=== PATIENT | female | born 1960 | race Caucasian/White ===

== ENCOUNTER 2020-03-27 12:03 | Inpatient (IN) | payer MEDICAID, SELFPAY ==
[2020-03-27] VITALS (17 sets, daily range): BP systolic 90–147; BP diastolic 42–92; PULSE 60–88; RESP 10–25; O2SAT 92–100; BMI 33.6
--- NOTE | 2020-03-27 12:10 | XR_ITS ---
WS: [id number] Portable AP upright chest, 03/27/2020 Clinical Data: cva Comparison: PA and lateral chest, 09/15/2014. Findings: There is patchy opacity in the right lower lobe which may represent acute pneumonia. The le ft lung is clear. The heart is normal. The aortic arch is tortuous. Monitor leads are on the chest wa ll. XR/XR chest 1V portable [id number] Impression: Patchy opacity in right lower lobe consistent with acute pneumonia.
--- NOTE | 2020-03-27 12:10 | CT_ITS ---
WS: [id number] CT HEAD TECHNIQUE: Noncontrast CT of the head obtained from the skullbase to the vertex. CLINICAL INFORMATION: cva COMPARISON: None. DLP: 1060.[address] scans at [facility] use at least one of these dose optimization techniques: automat ed exposure control; mA and/or kV adjustment per patient size (includes targeted exams where dose is matched to clinical indication); or iterative reconstruction. FINDINGS: No evidence of intracranial hemorrhage or mass effect. Ventricular system and basal cisterns are tej[place] nt. Mild small vessel changes with no significant parenchymal volume loss. Prominent perivascular spa ce left basal ganglia. No extra-axial fluid collections. No evidence of mass or mass effect. Normal g ray-white differentiation. Small amount of fluid left maxillary sinus. Mastoid air cells well aerated. CT/CT head wo con* [id number] IMPRESSION: 1. No evidence of intracranial hemorrhage or mass effect. 2. No acute intracranial findings.
--- NOTE | 2020-03-27 12:11 | ECG_ITS ---
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 Measurements Intervals [place] Rate: 87 P: 20 WV: 132 QRS: 45 QRSD: 79 T: 28 QT: 330 QTc: 398 Interpretive Statements SINUS RHYTHM LOW QRS VOLTAGE IN PRECORDIAL LEADS [QRS DEFLECTION < 1.0 mV IN CHEST LEADS] NONSPECIFIC ST & T-WAVE ABNORMALITY No previous ECG available for comparison Electronically Signed On 03-27-2020 19:51:44 SENIOR TELECOMMUNICATIONS ENGINEER by Neil Cobb M.D. [id number]
--- NOTE | 2020-03-27 12:21 | ED_ITS ---
HPI - Altered Mental Status General: Chief Complaint: Altered Mental Status Stated Complaint: stroke like symptoms Time Seen by Provider: 03/27/20 12:15 Source: patient Mode of arrival: ambulatory Limitations: no limitations History of Present Illness: HPI narrative: 59-year-old female states she been having cough and shortness of breath over the last week. She states she does have a history of COPD. States she is having some confusion today. She is able answer most questions correctly she did tell me it was 2020. Denies any fevers. Patient is in obvious distress here and was 78% pulse ox. She denies any chest pain. Associated symptoms: Deny depression Review of Systems Const: Denies: fever(s), chills, body aches or change in appetite Eyes: Denies: blurry vision or eye discomfort ENMT: Denies: throat pain or dental pain Card: Denies: chest pain Resp: Reports: dyspnea, non-productive cough and wheezing GI: Denies: abdominal pain, nausea, vomiting or diarrhea : Denies: dysuria Musc: Denies: neck pain or back pain Skin/Breast: Denies: rash Neuro: Denies: headache(s) Psych: Denies: depression Jameson/Lymph: Denies: easy bruising All/Imm: Denies: urticaria Physical Exam Const: COMMON NORMALS: patient oriented x3 GENERAL APPEARANCE: in distress and ill appearing HENMT: COMMON NORMALS: normocephalic and atraumatic HEAD & SCALP: normoc ephalic and atraumatic Eye: COMMON NORMALS: Equal, round and reactive pupils present and EOMs intact bilaterally PUPIL: Yes Equal, round and reactive pupils present Neck/C-Spine: COMMON NORMALS: full ROM and supple Chest: COMMONS NORMALS: normal inspection of the chest and normal palpation of entire chest wall Resp: COMMON NORMALS: No retractions and No use of accessory muscles EFFORT & INSPECTION: Yes respiratory distress AUSCULTATION: wheezes Cardio: COMMON NORMALS: regular rate, regular rhythm and No murmurs present (Cardio) RATE: regular rate RHYTHM: regular rhythm GI: COMMON NORMALS: Normal to inspection, nondistended, normoactive bowel sounds present, Soft to palpation, non-tender and no masses PALPATION: Yes Soft to palpation Extremity: COMMON NORMALS: normal to inspection and full ROM Neuro: COMMON NORMALS: patient oriented x3, moves all extremities and no focal motor deficits Psych: COMMON NORMALS: mental status grossly normal, Normal thought process present and cooperative THOUGHT PROCESS: Normal thought process present Skin: COMMON NORMALS: no rashes or lesions noted and no wounds GENERAL SKIN EXAM: no rashes or lesions noted Course Vital Signs: Vital signs: Vital Signs Pulse Rate 79 03/27/20 13:40 Pulse Oximetry 92 03/27/20 13:40 MDM - Altered Mental Status MDM Narrative: Medical decision making narrative: Patient presents here with shortness of breath with a right-sided pneumonia. Her Covid test here is negative. Start patient on antibiotics along with BiPAP. Spoke to hospitalist and will admit. She has been stable while here. Lab Data: Labs: Lab Results 03/27/20 03/27/20 03/27/20 Range/Units 12:36 12:50 12:50 WBC 12.8 H (4.0-10.0) 10^3/ uL RBC 4.16 (4.1-5.3) 10^6/u L Hgb 11.6 (11.5-15.3) g/dL Hct 36.3 L (37.0-47.0) % MCV 87.3 (81-99) fL MCH 27.9 L (28.0-34.0) pg MCHC 32.0 (30.0-36.0) g/dL RDW 14.2 (12.1-15.1) % Plt Count 413 H (130-400) 10^3/c mm MPV 9.3 (7.4-10.4) fL Neut % (Auto) 81.9 % Lymph % (Auto) 11.8 % [place] % (Auto) 3.6 % Eos % (Auto) 1.9 % Baso % (Auto) 0.2 % Neut # (Auto) 10.51 H (1.8-7.7) 10^3/u L Lymph # (Auto) 1.5 (0.8-4.8) 10^3/u L [place] # (Auto) 0.5 (0.2-0.9) 10^3/u L Eos # (Auto) 0.3 (0.0-0.8) 10^3/u L Baso # (Auto) 0.0 (0.0-0.1) 10^3/u L Nucleated RBC % (a uto) 0 % Nucleated RBCs # 0.0 /100WBC PT 14.80 (12.1-14.9) SECO NDS INR 1.13 (0.8-1.2) Fibrinogen 761 H (174-498) mg/dL Specimen Type Arterial Sample Site Radial, left ABG pH 7.30 L (7.35-7.45) ABG pCO2 46.0 H (35-45) mmHg ABG pO2 67.1 L (80.0-100.0) mmH g ABG HCO3 22.7 (22-26) mmol/L ABG Base Excess -3.8 L (-2.0-2.0) mmol/ L Sterling Test Pos Hematocrit 36.2 L (37-47) % O2 Delivery Device Nc O2 Liters/Min 5.0 % Health Records Technology Teacher ID Cak Sodium (136-145) mmol/L Potassium (3.5-5.1) mmol/L Chloride (98-107) mmol/L Carbon Dioxide (22-29) mmol/L Anion Gap (5-19) BUN (6-20) mg/dL Creatinine (0.5-0.9) mg/dL GFR Calculation (90-130) mL/min Glucose (65-115) mg/dL Calculated Osmolal ity (285-295) mOsm/k g Calcium (8.5-10.5) mg/dL Total Bilirubin (0.15-1.2) mg/dL AST (0-32) U/L ALT (0-33) U/L Alkaline Phosphata se (35-105) IU/L C-Reactive Protein (0.0-4.9) mg/L Total Protein (6.6-8.7) g/dL Albumin (3.5-5.2) g/dL Globulin (1.3-4.6) g/dL SARS-CoV-2 Ag (Rap id) (Negative) 03/27/20 03/27/20 Range/Units 12:50 12:55 WBC (4.0-10.0) 10^3/ uL RBC (4.1-5.3) 10^6/u L Hgb (11.5-15.3) g/dL Hct (37.0-47.0) % MCV (81-99) fL MCH (28.0-34.0) pg MCHC (30.0-36.0) g/dL RDW (12.1-15.1) % Plt Count (130-400) 10^3/c mm MPV (7.4-10.4) fL Neut % (Auto) % Lymph % (Auto) % [place] % (Auto) % Eos % (Auto) % Baso % (Auto) % Neut # (Auto) (1.8-7.7) 10^3/u L Lymph # (Auto) (0.8-4.8) 10^3/u L [place] # (Auto) (0.2-0.9) 10^3/u L Eos # (Auto) (0.0-0.8) 10^3/u L Baso # (Auto) (0.0-0.1) 10^3/u L Nucleated RBC % (a uto) % Nucleated RBCs # /100WBC PT (12.1-14.9) SECO NDS INR (0.8-1.2) Fibrinogen (174-498) mg/dL Specimen Type Sample Site ABG pH (7.35-7.45) ABG pCO2 (35-45) mmHg ABG pO2 (80.0-100.0) mmH g ABG HCO3 (22-26) mmol/L ABG Base Excess (-2.0-2.0) mmol/ L Sterling Test Hematocrit (37-47) % O2 Delivery Device O2 Liters/Min % Health Records Technology Teacher ID Sodium 137 (136-145) mmol/L Potassium 3.7 (3.5-5.1) mmol/L Chloride 100 (98-107) mmol/L Carbon Dioxide 22 (22-29) mmol/L Anion Gap 18.7 (5-19) BUN 28 H (6-20) mg/dL Creatinine 0.9 (0.5-0.9) mg/dL GFR Calculation 64.3 L (90-130) mL/min Glucose 98 (65-115) mg/dL Calculated Osmolal ity 289 (285-295) mOsm/k g Calcium 9.4 (8.5-10.5) mg/dL Total Bilirubin 0.3 (0.15-1.2) mg/dL AST 280 H (0-32) U/L ALT 100 H (0-33) U/L Alkaline Phosphata se 120 H (35-105) IU/L C-Reactive Protein 264.2 H (0.0-4.9) mg/L Total Protein 7.3 (6.6-8.7) g/dL Albumin 4.1 (3.5-5.2) g/dL Globulin 3.2 (1.3-4.6) g/dL SARS-CoV-2 Ag (Rap id) Negative (Negative) Imaging Data^: CXR: Attestation: I personally reviewed and interpreted this imaging study as follows: My impression: rll pneumonia Xray Ortho: Radiologist's impression: [place] [address] CT Scan Report Signed Patient: Selene Kern Unit #: [id number] : 1960 Age/Sex: 59 / F ADM Date: 03/27/20 Loc: ER Room/Bed: Attending Dr: Ordering Provider/Ordering MD: Hieu Castillo MD Date of Service: 03/27/20 Procedure(s): CT head wo con* [id number] Accession Number(s): [id number] Report Number: [id number] WS: [id number] CT HEAD TECHNIQUE: Noncontrast CT of the head obtained from the skullbase to the vertex. CLINICAL INFORMATION: cva COMPARISON: None. DLP: 1060.[address] scans at [facility] use at least one of these dose optimization techniques: automated exposure control; mA and/or kV adjustment per patient size (includes targeted exams where dose is matched to clinical indication); or iterative reconstruction. FINDINGS: No evidence of intracranial hemorrhage or mass effect. Ventricular system and basal cisterns are patent. Mild small vessel changes with no significant parenchymal volume loss. Prominent perivascular space left basal ganglia. No extra-axial fluid collections. No evidence of mass or mass effect. Normal lancaster-white differentiation. Small amount of fluid left maxillary sinus. Mastoid air cells well aerated. CT/CT head wo con* [id number] IMPRESSION: 1. No evidence of intracranial hemorrhage or mass effect. 2. No acute intracranial findings. CT Head: Radiologist's impression: [facility] [address] [place] [address] CT Scan Report Signed Patient: Selene Kern Unit #: [id number] : 1960 Age/Sex: 59 / F ADM Date: 03/27/20 Loc: ER Room/Bed: Attending Dr: Ordering Provider/Ordering MD: Hieu Castillo MD Date of Service: 03/27/20 Procedure(s): CT head wo con* [id number] Accession Number(s): [id number] Report Number: [id number] WS: [id number] CT HEAD TECHNIQUE: Noncontrast CT of the head obtained from the skullbase to the vertex. CLINICAL INFORMATION: cva COMPARISON: None. DLP: 1060.[address] scans at [facility] use at least one of these dose optimization techniques: automated exposure control; mA and/or kV adjustment per patient size (includes targeted exams where dose is matched to clinical indication); or iterative reconstruction. FINDINGS: No evidence of intracranial hemorrhage or mass effect. Ventricular system and basal cisterns are patent. Mild small vessel changes with no significant parenchymal volume loss. Prominent perivascular space left basal ganglia. No extra-axial fluid collections. No evidence of mass or mass effect. Normal lancaster-white differentiation. Small amount of fluid left maxillary sinus. Mastoid air cells well aerated. CT/CT head wo con* [id number] IMPRESSION: 1. No evidence of intracranial hemorrhage or mass effect. 2. No acute intracranial findings. 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
[2020-03-27 12:47] LABS: Arterial Blood Gas Hematocrit 36.2 % (37-47); Base Excess ABG -3.8 mmol/L (-2.0-2.0); Blood Gas Allen Test Pos; Blood Gas Operator Identificat CAK; Blood Gas Sample Site Radial, left; Blood Gas Sample Type Arterial; HCO3 ABG 22.7 mmol/L (22-26); Oxygen Device NC; PO2 ABG 67.1 mmHg (80.0-100.0)
[2020-03-27 13:14] LABS: Basophils % 0.2 %; Eosinophils # 0.3 10^3/uL (0.0-0.8); Eosinophils % 1.9 %; Hematocrit 36.3 % (37.0-47.0); Hemoglobin 11.6 g/dL (11.5-15.3); Lymphocytes # 1.5 10^3/uL (0.8-4.8); Lymphocytes % 11.8 %; Mean Corpuscular Hemoglobin 27.9 pg (28.0-34.0); Mean Corpuscular Volume 87.3 fL (81-99); Mean Platelet Volume 9.3 fL (7.4-10.4); Monocytes # 0.5 10^3/uL (0.2-0.9); Monocytes % 3.6 %; Neutrophils # 10.51 10^3/uL (1.8-7.7); Neutrophils % 81.9 %; Nucleated Red Blood Cells % 0 %; Platelet Count 413 10^3/cmm (130-400); Red Blood Count 4.16 10^6/uL (4.1-5.3); Red Cell Distribution Width 14.2 % (12.1-15.1); White Blood Count 12.8 10^3/uL (4.0-10.0)
[2020-03-27 13:27] LABS: Fibrinogen 761 mg/dL (174-498); INR 1.13 (0.8-1.2)
[2020-03-27 13:35] LABS: SARS Covid-2 Antigen Negative (Negative)
[2020-03-27 13:37] LABS: Alanine Aminotransferase 100 U/L (0-33); Albumin Level 4.1 g/dL (3.5-5.2); Alkaline Phosphatase 120 IU/L (35-105); Anion Gap 18.7 (5-19); Aspartate Amino Transferase 280 U/L (0-32); Blood Urea Nitrogen 28 mg/dL (6-20); C Reactive Protein 264.2 mg/L (0.0-4.9); Calcium 9.4 mg/dL (8.5-10.5); Carbon Dioxide 22 mmol/L (22-29); Chloride 100 mmol/L (98-107); Globulin 3.2 g/dL (1.3-4.6); Glomerular Filtration Rate 64.3 mL/min (90-130); Glucose 98 mg/dL (65-115); Osmolality Calculated 289 mOsm/kg (285-295); Potassium 3.7 mmol/L (3.5-5.1); Sodium 137 mmol/L (136-145); Total Bilirubin 0.3 mg/dL (0.15-1.2); Total Protein 7.3 g/dL (6.6-8.7)
--- NOTE | 2020-03-27 14:27 | P.HP_ITS ---
Providers/Chief Complaint Admitting Physician: Nacho Hills MD Chief Complaint: stroke like symptoms History of Present Illness Selene Kern is a 59 year old female 59 Y O F with PMH of COPD not on home oxygen ,HTN came in with c/o worsening cough and shortness of breath for a week.She deny any fever,chest pain,PND,Orthopnea,headache,N.V.D, any sick contact.Upon arrival inthe ER. ABG was done: Ph: 7.30,PCO2:46,PO2:67 at FIO2: 36%. Xray chest : Patchy opacity in right lower lobe consistent with acute pneumonia. C.T Head without Contrast : No evidence of intracranial hemorrhage or mass effect. 2. No acute intracranial findings. EKG: SINUS RHYTHM. LOW QRS VOLTAGE IN PRECORDIAL LEADS [QRS DEFLECTION < 1.0 mV IN CHEST LEADS] . NONSPECIFIC ST & T-WAVE ABNORMALITY. WBC:12.8 H/H: 11.6/36 PLT: 413 AST: 280, ALT: 100, ALP: 120 SARS COV2 AG :Negative Review of Systems General: Reports: 10 or more systems reviewed and unremarkable except in HPI and below Const: Denies: fever(s), chills, body aches, change in appetite or diaphoresis Card: Denies: palpitations, edema, swelling of feet/ankles, orthopnea or leg pain with exertion GI: Denies: abdominal pain, nausea, vomiting, diarrhea or constipation : Denies: flank pain Musc: Denies: back pain, extremity pain or extremity swelling Neuro: Denies: headache(s), difficulty walking or confusion Medications/Allergies Home Medications Medication Instructions Recorded Confirmed Last Taken Type albuterol sulfate [ProAir HFA] 2 puff INHALATION Q4H PRN 03/27/20 03/27/20 Unk nown History alprazolam 1 mg PO BID PRN 03/27/20 03/27/20 03/27/20 History fluticasone propionate 2 spray INTRANASAL BID 03/27/20 03/27/20 Unknown History gemfibrozil 600 mg PO BID 03/27/20 03/27/20 Unknown History ibuprofen 600 - 800 mg PO PRN 03/27/20 03/27/20 Unknown History nifedipine 30 mg PO DAILY 03/27/20 03/27/20 03/27/20 History omeprazole 20 mg PO DAILY PRN 03/27/20 03/27/20 Unknown History tramadol 50 mg PO BID PRN 03/27/20 03/27/20 03/27/20 History Allergies Allergy/AdvReac Type Severity Reaction Status Date / Time baclofen Allergy ADR-Itching Verified 03/27/20 12:46 Vitals/I&O/Wt Last Vital Signs Pulse 79 03/27/20 13:40 Pulse Ox 92 03/27/20 13:40 Weight last 48 hrs Weight 83.461 kg Physical Exam Const: COMMON NORMALS: patient oriented x3 HENMT: COMMON NORMALS: normocephalic, atraumatic, hearing grossly normal bilaterally and external ears normal HEAD & SCALP: normocephalic and atraumatic EXTERNAL EAR: Yes external ears normal Eye: COMMON NORMALS: no scleral icterus GENERAL EYE: appearance normal, both eyes and all related structures Chest: COMMONS NORMALS: normal inspection of the chest and normal palpation of entire chest wall CHEST: Yes Symmetrical chest wall rise Resp: EFFORT & INSPECTION: Yes abnormal respiratory pattern and Yes tachypneic AUSCULTATION: wheezes and diminished lung sounds Cardio: COMMON NORMALS: regular rate, regular rhythm, S1 normal heart sound present, S2 normal heart sound present, No gallops present (Cardio), No murmurs present (Cardio), No rub (Cardio) and Peripheral pulses 2+ throughout RATE: regular rate RHYTHM: regular rhythm HEART SOUNDS: S1 normal heart sound present and S2 normal heart sound present PERIPHERAL PULSES: Peripheral pulses 2+ throughout GI: COMMON NORMALS: Normal to inspection, nondistended, normoactive bowel sounds present, Soft to palpation, non-tender, No hepatosplenomegaly present and no masses AUSCULTATION: Yes normoactive bowel sounds PALPATION: Yes Soft to palpation and Yes No hepatosplenomegaly present RECTAL EXAM: deferred Extremity: COMMON NORMALS: no clubbing, cyanosis or edema and no pedal edema Neuro: COMMON NORMALS: patient oriented x3 Data : 03/27/20 12:50 03/27/20 12:50 A&P Assessment and plan (1) Respiratory failure: AC Hypercapneic hypoxic R/F likely 2/2 to PNA R/O P.E ABG : Acute (uncompensated) primary respiratory acidosis, with metabolic acidosis, with normal anion gap Xray chest: Patchy opacity in right lower lobe consistent with acute pneumonia Came in with worsening SOB as well as cough going on for a week. Currently On BIPAP Repeat ABG in an hour. CTA:Pending Cef and Azithro Status: Acute (2) COPD exacerbation: COPD Exacerbation 2/2 to PNA DUO NEBS Solumedrol 60 mg i.v q6h daily Cef and Azithromycin Status: Acute (3) Pneumonia: Xray chest: Patchy opacity in right lower lobe consistent with acute pneumonia Came in with worsening SOB as well as cough going on for a week. ABG : Acute (uncompensated) primary respiratory acidosis, with metabolic acidosis, with normal anion gap Currently On BIPAP Repeat ABG in an hour. 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
--- NOTE | 2020-03-27 14:50 | CTR_ITS ---
PROCEDURE INFORMATION: Exam: CT Angiography Chest With Contrast Exam date and time: 03/27/2020 3:01 PM Age: 59 years old Clinical indication: Cough and shortness of breath; Patient HX: C/O cough and SOB x 1 week; Additional info: R/O p. E TECHNIQUE: Imaging protocol: Computed tomographic angiography of the chest with intravenous contrast. 3D rendering (Not supervised by radiologist): MIP and/or 3D reconstructed images were created by the technologist. Radiation optimization: All CT scans at this facility use at least one of these dose optimization techniques: automated exposure control; mA and/or kV adjustment per patient size (includes targeted exams where dose is matched to clinical indication); or iterative reconstruction. Contrast material: OMNI 350; Contrast volume: 66 ml; Contrast route: INTRAVENOUS (IV); COMPARISON: CR XR chest 1V portable [id number] 03/27/2020 12:39 PM RADIATION DOSE METRICS: Total DLP (mGy-cm): 545.03 FINDINGS: Limitations: Study is somewhat limited by patient respiratory motion. Pulmonary arteries: There is no evidence of filling defects within the pulmonary arterial circulation to suggest pulmonary embolism. Aorta: Unremarkable. No aortic aneurysm. No aortic dissection. Lungs: There is moderate centrilobular emphysema throughout both lungs. There is diffuse of the opacity and peripheral consolidation in the right middle lobe in keeping with pneumonia. There is also ground-glass and alveolar opacity in the upper lobes abutting the fissures and posteriorly at the lung bases more on the right than on the left also some peripheral consolidation the right lower lobe in keeping with pneumonia. Findings could also be due in part to superimposed interstitial edema. Differential considerations include COVID-19. Pleural space: Unremarkable. No pneumothorax. No pleural effusion. Heart: Unremarkable. No cardiomegaly. No pericardial effusion. Lymph nodes: Unremarkable. No enlarged lymph nodes. Bones/joints: Unremarkable. No acute fracture. Soft tissues: Unremarkable. CT/CT angio chest PE protcl [id number] IMPRESSION: 1. No evidence of pulmonary embolism. 2. Bilateral pneumonia. Imaging features can be seen with COVID-19 pneumonia, though are nonspecific and can occur with a variety of infectious and noninfectious processes. Comment:THIS REPORT CONTAINS FINDINGS THAT MAY BE CRITICAL TO PATIENT CARE. The findings were verbally communicated via telephone conference with Dr. Santos at 6:31 PM SOFA BACK UPHOLSTERER on 03/27/2020. The findings were acknowledged and understood. Radiation Dose CTDIVOL = (mGy): DLP = 545.03 (mGy-cm)
[2020-03-27] MEDS: cefTRIAXone 1,000 MG in sodium chloride 0.9% (plus) 50 ML 100 MG IV (14:54)
[2020-03-27] MEDS: ipratropium-albuterol 3 mL Neb INHALATION (15:02)
[2020-03-27 15:14] LABS: ABG PCO2 48.7 mmHg (35-45); Alveolar-Arterial Oxygen Gradi 28.9 mmHg (5-10); Arterial Blood Gas Hematocrit 36.4 % (37-47); Base Excess ABG -2.9 mmol/L (-2.0-2.0); Blood Gas Allen Test Pos; Blood Gas Operator Identificat CAK; Blood Gas Sample Site Radial, left; Blood Gas Sample Type Arterial; HCO3 ABG 23.9 mmol/L (22-26); HGB O2 Sat 90.2 % (95-100); Ionized Calcium Level - ABG 1.2 mmol/L (1.1-1.4); Methemoglobin 0.9 % (0.4-1.5); Oxygen Device BIPAP; Oxygen Saturation ABG 91.1; PO2 ABG 76.9 mmHg (80.0-100.0); Total Hemoglobin 11.9 g/dL (12-16)
[2020-03-27] MEDS: enoxaparin 100 mg/mL Syringe 80 MG SUBCUT (15:57)
--- NOTE | 2020-03-27 16:32 | PC.NURSE ---
Spoke with patient's and he has been updated on the fact admitting physician felt the patient needed higher level of care. informed it could be a very lengthy process to find facility able to accept patient.
[2020-03-27] MEDS: azithromycin 500 MG in sodium chloride 0.9% 250 ML 250 MG IV (16:59)
[2020-03-27] MEDS: sodium chloride 0.9% 1,000 ML 999 ML IV ×2 (17:02→22:30)
--- NOTE | 2020-03-27 17:14 | PC.RESP ---
Mark Stanton of Resp. rate.
[2020-03-27] MEDS: iohexol 350 mg/mL 100 mL Btl IV (17:38)
[2020-03-27] MEDS: LORazepam 2 mg/mL INJ 1 mL 0.5 MG IVP (19:03)
[2020-03-27 20:02] LABS: ABG PCO2 46.5 mmHg (35-45); ABG PH Result 7.29 (7.35-7.45); Base Excess ABG -4.2 mmol/L (-2.0-2.0); Blood Gas Allen Test Pos; Blood Gas Sample Site Brachial, right; Blood Gas Sample Type Arterial; HCO3 ABG 22.4 mmol/L (22-26); Oxygen Device BIPAP; PO2 ABG 81.7 mmHg (80.0-100.0)
[2020-03-27] MEDS: LORazepam 2 mg/mL INJ 1 mL 1 MG IVP ×2 (20:50→21:25)
--- NOTE | 2020-03-27 21:28 | XRR_ITS ---
PROCEDURE INFORMATION: Exam: XR Chest, 1 View Exam date and time: 03/27/2020 10:02 PM Age: 59 years old Clinical indication: Device placement; Ett placement (vent status); Patient HX: Post intubation, post og tube TECHNIQUE: Imaging protocol: XR of the chest Views: 1 view. COMPARISON: CR XR chest 1V portable [id number] 03/27/2020 12:39 PM FINDINGS: Tubes, catheters and devices: Endotracheal tube is in satisfactory position with its tip approximately 2 cm above the loretta. Nasogastric tube tip is in the stomach. Lungs: There is pulmonary infiltrate in the right lower lobe and middle lobe not significantly changed from previous. Pleural space: Unremarkable. No pleural effusion. No pneumothorax. Heart/Mediastinum: Unremarkable. No cardiomegaly. Bones/joints: Unremarkable. XR/XR chest 1V portable [id number] IMPRESSION: 1. No change in pneumonia. 2. Satisfactory position of NG tube and ET tube
[2020-03-27] MEDS: propofol 1,000 MG/100 ML INJ 5 MG IV (21:34)
[2020-03-27] MEDS: vecuronium 10 mg SDV IVP (21:52)
[2020-03-27 22:15] LABS: Glucose Point of Care 157 mg/dL (70-110)
--- NOTE | 2020-03-27 22:57 | PC.NURSE ---
Arrived to ICU via [facility] 2245, transferred to bed via lift sheet, Fentanyl at 100 mcg, Propofol at 5 mcg, Pupils reactive, no response to verbal or pain at this time, ET tube 26 @ Lip
--- NOTE | 2020-03-27 23:33 | PC.NURSE ---
upon shift change, pt mentation status changed from diminished to combative. Pt pulling all monitoring equipment, and IV. 18g IV x1 attempt in L forearm and 16g in R AC placed x1 attempt. orders obtained for reception interviewer for her safety and ativan IVP. pt becoming inreasingly combative, requiring assistance from multiple staff members to keep pt in bed. notified of pt's increased combativeness, decision made for RSI. Intubation successful. Ryder catheter placed. ICU notified of updated status
--- NOTE | 2020-03-27 23:46 | PC.NURSE ---
pt B/P dropping to 90/42 after fentanyl drip administration. orders obtained for fluid bolus
[2020-03-27 23:59] LABS: ABG PCO2 45.1 mmHg (35-45); Arterial Blood Gas Hematocrit 40.9 % (37-47); Base Excess ABG -4.6 mmol/L (-2.0-2.0); Blood Gas Sample Site Brachial, left; Blood Gas Sample Type Arterial; Oxygen Device VENT; PO2 ABG 81.8 mmHg (80.0-100.0)
[2020-03-28] VITALS (41 sets, daily range): BP systolic 87–151; BP diastolic 46–75; PULSE 60–103; RESP 13–23; TEMP 36.7–36.9; O2SAT 90–96
--- NOTE | 2020-03-28 02:38 | PC.NURSE ---
N.O. BP 91/46 MAP 61, Dr. Lee Approved Levo Drip Protocol
--- NOTE | 2020-03-28 02:41 | PC.NURSE ---
0100 Pt became restless, RR 30's, Trying to get hands towards ET tube, Propofol advanced to 30 mcg/min per order see JUL, BP 91/46, Propofol decreased to 25 mcg/min per order BP 97/48 at this time
[2020-03-28 03:51] LABS: Basophils % 0.1 %; Hematocrit 34.2 % (37.0-47.0); Hemoglobin 10.6 g/dL (11.5-15.3); Lymphocytes % 13.9 %; Mean Corpuscular Hemoglobin 27.3 pg (28.0-34.0); Mean Corpuscular Volume 88.1 fL (81-99); Mean Platelet Volume 9.4 fL (7.4-10.4); Monocytes # 0.2 10^3/uL (0.2-0.9); Monocytes % 3.4 %; Neutrophils # 5.77 10^3/uL (1.8-7.7); Neutrophils % 81.6 %; Nucleated Red Blood Cells % 0 %; Platelet Count 385 10^3/cmm (130-400); Red Blood Count 3.88 10^6/uL (4.1-5.3); Red Cell Distribution Width 14.1 % (12.1-15.1); White Blood Count 7.1 10^3/uL (4.0-10.0)
[2020-03-28 04:33] LABS: Alanine Aminotransferase 85 U/L (0-33); Albumin Level 3.6 g/dL (3.5-5.2); Alkaline Phosphatase 98 IU/L (35-105); Aspartate Amino Transferase 189 U/L (0-32); Blood Urea Nitrogen 24 mg/dL (6-20); Carbon Dioxide 23 mmol/L (22-29); Chloride 106 mmol/L (98-107); Glomerular Filtration Rate 102.7 mL/min (90-130); Glucose 128 mg/dL (65-115); Magnesium 2.5 mg/dL (1.7-2.3); NT Pro B Type Natriuretic Pept 1190 pg/mL (0-125); Osmolality Calculated 302 mOsm/kg (285-295); Phosphorus 3.4 mg/dL (2.5-4.5); Procalcitonin 0.91 ng/mL (0-0.5); Sodium 143 mmol/L (136-145); Total Bilirubin 0.3 mg/dL (0.15-1.2); Total Protein 6.6 g/dL (6.6-8.7)
[2020-03-28 04:34] LABS: ABG PCO2 48.9 mmHg (35-45); Arterial Blood Gas Hematocrit 34.8 % (37-47); Base Excess ABG -2.6 mmol/L (-2.0-2.0); Blood Gas Allen Test Pos; Blood Gas Sample Site Radial, left; Blood Gas Sample Type Arterial; HCO3 ABG 24.1 mmol/L (22-26); Oxygen Device VENT
--- NOTE | 2020-03-28 05:50 | PC.NURSE ---
Restless, disconnected ET tube from vent, Propofol increased per order
[2020-03-28] MEDS: propofol 1,000 MG/100 ML INJ 20 MG IV (05:52)
--- NOTE | 2020-03-28 06:38 | NUR.SHIFT ---
Required multiple increases in Propopfol rate to keep from self extubating, disconnected ET tube from vent 1x, required Levophed drip, responds to painful stimuli
[2020-03-28] MEDS: ipratropium-albuterol 3 mL Neb INHALATION ×3 (09:20→20:09)
[2020-03-28] MEDS: LORazepam 2 mg/mL INJ 1 mL 4 MG IVP (10:39)
[2020-03-28] MEDS: methadone 10 mg Tablet 30 MG PO (10:39)
[2020-03-28] MEDS: LORazepam 2 mg/mL INJ 1 mL 1 MG IVP (11:29)
--- NOTE | 2020-03-28 11:37 | P.PN_ITS ---
Subjective Subjective: Interval history: Patient was intubated overnight.As she was not tolearting BIPAP and was also very combative. Currently remain intubated and sedated. off sedation GCS is 10 T Has Remained afebrile. Good urine output: 2100 cc Medications: Reviewed: Yes Vitals/I&O/Wt Last Vital Signs Pulse 73 03/28/20 11:00 Resp 15 03/28/20 11:05 BP 141/59 03/28/20 11:00 Pulse Ox 96 03/28/20 11:00 03/27/20 03/28/20 03/28/20 22:59 06:59 14:59 Intake Total 147.917 / 147.917 Output Total 1050 / 1050 1050 / 1050 Balance -902.083 / -902.083 -1050 / -1050 Weight last 48 hrs Weight 86.183 kg Weight 83.461 kg Physical Exam 2 Narrative: EXAM NARRATIVE: Intubated and sedated. GCS OFF Sedation :10T HENMT: COMMON NORMALS: normocephalic and atraumatic HEAD & SCALP: normo cephalic and atraumatic Chest: COMMONS NORMALS: normal inspection of the chest Resp: COMMON NORMALS: normal respiratory effort EFFORT & INSPECTION: Yes symmetric chest movement OTHER: Upper part of the chest was auscultated, B/L Clear.Difficulty auscultating back of chest Cardio: COMMON NORMALS: regular rate, regular rhythm, S1 normal heart sound present, S2 normal heart sound present, No gallops present (Cardio), No murmurs present (Cardio), No rub (Cardio) and Peripheral pulses 2+ throughout RATE: regular rate RHYTHM: regular rhythm HEART SOUNDS: S1 normal heart sound present and S2 normal heart sound present PERIPHERAL PULSES: Peripheral pulses 2+ throughout GI: COMMON NORMALS: Normal to inspection, nondistended, normoactive bowel sounds present, Soft to palpation, non-tender, No hepatosplenomegaly present and no masses AUSCULTATION: Yes normoactive bowel sounds PALPATION: Yes Soft to palpation and Yes No hepatosplenomegaly present RECTAL EXAM: deferred Extremity: COMMON NORMALS: no clubbing, cyanosis or edema and no pedal edema Urinary Catheter Management^: Ryder: Cath Placed During This Visit: yes Reason for Continuing Indwelling Catheter: Accurate Measurement of Urinary Output in Critically Ill Patients Urinary Catheter Date of Insertion: 03/27/20 Urinary Catheter Time of Insertion: 22:30 Data : 03/28/20 03:38 03/28/20 03:38 A&P Assessment and plan (1) Sepsis: -Sepsis 2/2 to PNA r/o COVID -19 PNA -Patient was hypotensive, tachypenic , has Pneumonia. Responded to fluid bolus, was on Levophed briefly overnight. -C.T.A :Has ruled out P.E. More in line with PNA ( As evidenced by : diffuse of the opacity and peripheral consolidation in the right middle lobe in keeping with pneumonia. There is also ground-glass and alveolar opacity in the upper lobes abutting the fissures and posteriorly at the lung bases more on the right than on the left also some peripheral consolidation the right lower lobe in keeping with pneumonia ) -Blood Culture, urine culture, sputum culture. -Procal: 0.91 , Lactic acid : Pending -Initially on Cef and Azithro. Discontinued today -Started on Van , imipenam as well as azithromycin ( 03/28) Status: Acute (2) Acute encephalopathy: Likley 2/2 to Sepsis 2/2 PNA ,Cannot r/o possible withdrawal. C.T Head without contrast :No acute intracranail pathology Sepsis management as above. Currently on Precedex, versed, and ativan PRN Status: Acute (3) Pneumonia: R/O COVID -19 Rapid :Negative Plan as 1 Status: Acute (4) Respiratory failure: Ac Hypoxic hypercapnic r/f 2/2 PNA /COPD Exacerbation 2/2 to PNA Serial ABG : Xray chest: Continue mechanical Vent Status: Acute (5) COPD exacerbation: DUO NEBS Solu-Medrol 60 mg IV every 6H daily. Status: Acute (6) Hypertension: Currently normotensive. Continue to monitor blood pressure for now. 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 Status: Acute Additional A&P Information Code Status :Full Code DVT PPX: On lovenox 40 mg sc daily Disposition :Home once stable Attestations Medical Necessity Statement*: Patient needs to be in hospital for the management of sepsis, ,R/F , pneumonia, rule out Covid 19, and acute encephalopathy. 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
--- NOTE | 2020-03-28 12:36 | PC.NURSE ---
episode of agitation and kicking legs and pulling at tubes weaned off diprivan and started on versed gtt and on precidex .. had removed 2 iv and resited into right hand and right arm . started calming down after ativan
[2020-03-28] MEDS: LORazepam 2 mg/mL INJ 1 mL IVP ×3 (14:58→21:55)
[2020-03-28] MEDS: cefTRIAXone 1,000 MG in sodium chloride 0.9% (plus) 50 ML 100 MG IV (14:58)
[2020-03-28] MEDS: enoxaparin 40 mg/0.4 mL Syringe SUBCUT (16:51)
[2020-03-28] MEDS: dexmedetomidine 400 MCG in sodium chloride 0.9% (100 ml) 100 ML 22.4 MCG IV ×2 (17:01→22:06)
[2020-03-28] MEDS: azithromycin 500 MG in sodium chloride 0.9% 250 ML 250 MG IV (17:13)
--- NOTE | 2020-03-28 17:59 | PC.NURSE ---
pulled ng out thrashing around in bed does respond to questions but continues to pull at all lines and flail legs ect
[2020-03-28 18:43] LABS: ABG PCO2 41.7 mmHg (35-45); ABG PH Result 7.38 (7.35-7.45); Alveolar-Arterial Oxygen Gradi 34.2 mmHg (5-10); Base Excess ABG -0.5 mmol/L (-2.0-2.0); Blood Gas Allen Test Pos; Blood Gas Operator Identificat CAK; Blood Gas Sample Site Radial, right; Blood Gas Sample Type Arterial; Blood Gas Tidal Volume 0.45; Carboxyhemoglobin 0.7 %THgb (0.4-20.1); HCO3 ABG 24.7 mmol/L (22-26); HGB O2 Sat 92.7 % (95-100); Ionized Calcium Level - ABG 1.2 mmol/L (1.1-1.4); Methemoglobin 1.3 % (0.4-1.5); Oxygen Device VENT; Oxygen Saturation ABG 94.6; PO2 ABG 72.7 mmHg (80.0-100.0); Potassium Level - ABG 3.9 mmol/L (3.5-5.0); Total Hemoglobin 11.1 g/dL (12-16)
[2020-03-28 18:48] LABS: Lactate (Lactic Acid level) 0.7 mmol/L (0.5-2.2)
[2020-03-29] VITALS (29 sets, daily range): BP systolic 153–181; BP diastolic 67–92; PULSE 53–74; RESP 14–23; TEMP 36–36.6; O2SAT 92–96
[2020-03-29] MEDS: LORazepam 2 mg/mL INJ 1 mL IVP ×6 (00:01→22:36)
[2020-03-29] MEDS: ipratropium-albuterol 3 mL Neb INHALATION ×4 (03:05→20:08)
[2020-03-29] MEDS: propofol 1,000 MG/100 ML INJ 15 MG IV (03:59)
--- NOTE | 2020-03-29 04:20 | PC.NURSE ---
Patient became very agitated and pulling at things, attempting to get out of bed. Unable to calm patient. RN x 2 at bedside attempting to keep patient from harming self. Notified Dr. Lee of current status and SBP in 170's. Order given to restart propofol.
[2020-03-29] MEDS: dexmedetomidine 400 MCG in sodium chloride 0.9% (100 ml) 100 ML 11.2 MCG IV ×2 (04:29→17:21)
--- NOTE | 2020-03-29 05:10 | XRR_ITS ---
PROCEDURE INFORMATION: Exam: XR Chest, 1 View Exam date and time: 03/29/2020 4:01 AM Age: 59 years old Clinical indication: Device placement; Ett placement (vent status); Patient HX: Et og follow up; Additional info: Pna TECHNIQUE: Imaging protocol: XR of the chest Views: 1 view. COMPARISON: CR XR chest 1V portable [id number] 03/27/2020 9:39 PM FINDINGS: Tubes, catheters and devices: Endotracheal and feeding tubes. The endotracheal tube terminates 2.8 cm above the loretta. Lungs: Interstitial and asymmetric airspace disease, with mild interval improvement in right basilar airspace disease. Heart: no cardiomegaly. Pleural space: Small right pleural effusion. Bones/joints: Degenerative change. XR/XR chest 1V portable [id number] IMPRESSION: Interstitial and asymmetric airspace disease, with mild interval improvement in right basilar airspace disease.
[2020-03-29 05:26] LABS: Basophils % 0.1 %; Hematocrit 35.7 % (37.0-47.0); Hemoglobin 11.2 g/dL (11.5-15.3); Lymphocytes # 0.9 10^3/uL (0.8-4.8); Lymphocytes % 11.3 %; Mean Corpuscular HGB Conc 31.4 g/dL (30.0-36.0); Mean Corpuscular Hemoglobin 27.7 pg (28.0-34.0); Mean Corpuscular Volume 88.4 fL (81-99); Mean Platelet Volume 9.5 fL (7.4-10.4); Monocytes # 0.4 10^3/uL (0.2-0.9); Monocytes % 4.9 %; Neutrophils # 6.28 10^3/uL (1.8-7.7); Neutrophils % 82.4 %; Nucleated Red Blood Cells % 0 %; Platelet Count 375 10^3/cmm (130-400); Red Blood Count 4.04 10^6/uL (4.1-5.3); Red Cell Distribution Width 14.2 % (12.1-15.1); White Blood Count 7.6 10^3/uL (4.0-10.0)
[2020-03-29 05:44] LABS: ABG PH Result 7.38 (7.35-7.45); Arterial Blood Gas Hematocrit 43.7 % (37-47); Base Excess ABG -0.3 mmol/L (-2.0-2.0); Blood Gas Allen Test Pos; Blood Gas Operator Identificat JB; Blood Gas Sample Site Radial, right; Blood Gas Sample Type Arterial; HCO3 ABG 25.2 mmol/L (22-26); Oxygen Device VENT; PO2 ABG 73.2 mmHg (80.0-100.0)
[2020-03-29 05:45] LABS: Blood Gas Tidal Volume 0.45
[2020-03-29 05:55] LABS: Alanine Aminotransferase 67 U/L (0-33); Albumin Level 3.6 g/dL (3.5-5.2); Alkaline Phosphatase 89 IU/L (35-105); Anion Gap 16.8 (5-19); Aspartate Amino Transferase 71 U/L (0-32); Blood Urea Nitrogen 27 mg/dL (6-20); Calcium 9.1 mg/dL (8.5-10.5); Carbon Dioxide 23 mmol/L (22-29); Chloride 109 mmol/L (98-107); Glomerular Filtration Rate 102.7 mL/min (90-130); Glucose 192 mg/dL (65-115); Magnesium 2.5 mg/dL (1.7-2.3); Osmolality Calculated 310 mOsm/kg (285-295); Phosphorus 2.9 mg/dL (2.5-4.5); Potassium 3.8 mmol/L (3.5-5.1); Sodium 145 mmol/L (136-145); Total Bilirubin 0.2 mg/dL (0.15-1.2); Total Protein 6.6 g/dL (6.6-8.7)
[2020-03-29] MEDS: FUROsemide 10 mg/mL SDV 4mL 40 MG IVP (08:39)
--- NOTE | 2020-03-29 10:06 | PC.NURSE ---
very agitated and restless lifting legs and kicking in bed unable to calm pt at this time ativan given at this time good urine output from lasix
--- NOTE | 2020-03-29 11:13 | P.PN_ITS ---
Subjective Subjective: Interval history: Patient remains intubated and sedated and on mechanical ventilation.GCS off sedation : 10 T Good Urine Output : 2.9 L .Has Remained afebrile. Medications: Reviewed: Yes Vitals/I&O/Wt Last Vital Signs Temp 97.8 F 03/29/20 04:00 Pulse 65 03/29/20 10:00 Resp 19 H 03/29/20 10:20 BP 153/78 03/29/20 10:00 Pulse Ox 92 03/29/20 10:00 03/28/20 03/29/20 03/29/20 22:59 06:59 14:59 Intake Total 804 / 903.667 344.567 / 1248.234 0 / 0 Output Total 500 / 1550 450 / 2000 450 / 450 Balance 304 / -646.333 -105.433 / -751.766 -450 / -450 Weight last 48 hrs Weight 84.323 kg Weight 86.183 kg Weight 83.461 kg Physical Exam HENMT: COMMON NORMALS: normocephalic and atraumatic HEAD & SCALP: nor mocephalic and atraumatic Chest: COMMONS NORMALS: normal palpation of entire chest wall Resp: COMMON NORMALS: No retractions and clear to auscultation bilaterally EFFORT & INSPECTION: Yes symmetric chest movement AUSCULTATION: clear to auscultation bilaterally Cardio: COMMON NORMALS: regular rate, regular rhythm, S1 normal heart sound present, S2 normal heart sound present, No gallops present (Cardio), No murmurs present (Cardio), No rub (Cardio) and Peripheral pulses 2+ throughout RATE: regular rate RHYTHM: regular rhythm HEART SOUNDS: S1 normal heart sound present and S2 normal heart sound present PERIPHERAL PULSES: Peripheral pulses 2+ throughout GI: COMMON NORMALS: Normal to inspection, nondistended, normoactive bowel sounds present, Soft to palpation, non-tender, No hepatosplenomegaly present and no masses AUSCULTATION: Yes normoactive bowel sounds PALPATION: Yes Soft to palpation and Yes No hepatosplenomegaly present RECTAL EXAM: deferred Extremity: COMMON NORMALS: no clubbing, cyanosis or edema and no pedal edema Urinary Catheter Management^: Ryder: Cath Placed During This Visit: yes Reason for Continuing Indwelling Catheter: Accurate Measurement of Urinary Output in Critically Ill Patients Urinary Catheter Date of Insertion: 03/27/20 Urinary Catheter Time of Insertion: 22:30 Data : 03/29/20 03:56 03/29/20 03:56 Micro: Microbiology 03/27/20 22:47 Sputum Culture - Preliminary Sputum - Endotracheal Tube Aspirate 03/28/20 19:50 Blood Culture - Preliminary Blood SPECIMEN COLLECTED 03/28/20 18:15 Blood Culture - Preliminary Blood SPECIMEN COLLECTED A&P Assessment and plan (1) Sepsis: -Sepsis 2/2 to PNA -Patient was hypotensive, tachypenic , has Pneumonia. Responded to fluid bolus, was on Levophed briefly overnight. -C.T.A :Has ruled out P.E. More in line with PNA ( As evidenced by : diffuse of the opacity and peripheral consolidation in the right middle lobe in keeping with pneumonia. There is also ground-glass and alveolar opacity in the upper lobes abutting the fissures and posteriorly at the lung bases more on the right than on the left also some peripheral consolidation the right lower lobe in keeping with pneumonia ) -Blood Culture:Negative till date -urine culture ; -sputum culture : Negative till date -Procal: 0.91 , Lactic acid : Pending -Initially on Cef and Azithro. Discontinued today -Started on Van , imipenam as well as azithromycin ( 03/28) Status: Acute (2) Acute encephalopathy: Likley 2/2 to Sepsis 2/2 PNA ,Cannot r/o possible withdrawal. C.T Head without contrast :No acute intracranail pathology Sepsis management as above. Currently on Precedex, versed, fentenyl, and ativan PRN Status: Acute (3) Pneumonia: COVID -19 :RT-PCR :Negative Rapid :Negative Plan as 1 Status: Acute (4) Respiratory failure: Ac Hypoxic hypercapnic r/f 2/2 PNA /COPD Exacerbation 2/2 to PNA AM ABG : Has shown improvement in oxygenation, we have decreased FIO2 to 45 % Currently On AC-VC- Tv :450 cc, R/R: 14, PEEP:8 , FIO 2: 45 ,PIP: 18 Xray chest: Interstitial and asymmetric airspace disease, with mild interval improvement in right basilar airspace disease. Continue mechanical Vent for now. Status: Acute (5) COPD exacerbation: DUO NEBS Solu-Medrol 60 mg IV every 6H daily. 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 Status: Acute Additional A&P Information Code Status :Full Code DVT PPX: On lovenox 40 mg sc daily Disposition :Home once stable Attestations Medical Necessity Statement*: Patient needs to be in hospital for the management of PNA, R.F , Ac encephalopathy Coding Level of Care Code Acute Insurance Appraiser for [facility] Fwd Diagnoses Sepsis A41.9 Acute encephalopathy G93.40 Pneumonia J18.9 Respiratory failure J96.90 COPD exacerbation J44.1 Hypertension I10 Transaminitis R74.01
[2020-03-29 15:37] LABS: Coronavirus Lab Test PTC Negative
[2020-03-29] MEDS: propofol 1,000 MG/100 ML INJ 25 MG IV (16:02)
[2020-03-29] MEDS: enoxaparin 40 mg/0.4 mL Syringe SUBCUT (16:36)
[2020-03-29] MEDS: azithromycin 500 MG in sodium chloride 0.9% 250 ML 250 MG IV (17:22)
[2020-03-29 18:51] LABS: Vancomycin Trough 18.8 ug/mL (10-15)
[2020-03-29] MEDS: HYDROcodone-acetaminophen 5-325 mg Tablet 1 TAB PO (19:50)
[2020-03-29] MEDS: propofol 1,000 MG/100 ML INJ 20 MG IV (20:32)
[2020-03-30] VITALS (52 sets, daily range): BP systolic 96–202; BP diastolic 49–114; PULSE 59–127; RESP 13–32; TEMP 36.2–37.3; O2SAT 87–97
[2020-03-30] MEDS: propofol 1,000 MG/100 ML INJ 22.5 MG IV (01:48)
[2020-03-30] MEDS: ipratropium-albuterol 3 mL Neb INHALATION ×4 (02:13→20:02)
[2020-03-30] MEDS: LORazepam 2 mg/mL INJ 1 mL IVP ×6 (02:40→19:01)
[2020-03-30] MEDS: dexmedetomidine 400 MCG in sodium chloride 0.9% (100 ml) 100 ML 13.4 MCG IV ×2 (03:23→09:36)
[2020-03-30 04:50] LABS: ABG PCO2 41.3 mmHg (35-45); ABG PH Result 7.43 (7.35-7.45); Arterial Blood Gas Hematocrit 36.6 % (37-47); Base Excess ABG 2.4 mmol/L (-2.0-2.0); Blood Gas Operator Identificat JB; Blood Gas Sample Site Brachial, right; Blood Gas Sample Type Arterial; HCO3 ABG 27.1 mmol/L (22-26); Oxygen Device VENT; PO2 ABG 63.1 mmHg (80.0-100.0)
[2020-03-30 04:51] LABS: Blood Gas Tidal Volume 0.45
[2020-03-30 05:21] LABS: Basophils % 0.1 %; Hematocrit 37.5 % (37.0-47.0); Hemoglobin 11.6 g/dL (11.5-15.3); Lymphocytes # 0.8 10^3/uL (0.8-4.8); Lymphocytes % 10.6 %; Mean Corpuscular HGB Conc 30.9 g/dL (30.0-36.0); Mean Corpuscular Hemoglobin 27.9 pg (28.0-34.0); Mean Corpuscular Volume 90.1 fL (81-99); Mean Platelet Volume 9.3 fL (7.4-10.4); Monocytes # 0.4 10^3/uL (0.2-0.9); Monocytes % 5.6 %; Neutrophils % 80.9 %; Nucleated Red Blood Cells % 0 %; Platelet Count 383 10^3/cmm (130-400); Red Blood Count 4.16 10^6/uL (4.1-5.3); Red Cell Distribution Width 14.1 % (12.1-15.1); White Blood Count 7.5 10^3/uL (4.0-10.0)
[2020-03-30] MEDS: propofol 1,000 MG/100 ML INJ 25 MG IV ×3 (05:59→20:17)
[2020-03-30 07:58] LABS: Alanine Aminotransferase 50 U/L (0-33); Albumin Level 3.4 g/dL (3.5-5.2); Alkaline Phosphatase 80 IU/L (35-105); Aspartate Amino Transferase 41 U/L (0-32); Blood Urea Nitrogen 19 mg/dL (6-20); Carbon Dioxide 25 mmol/L (22-29); Chloride 104 mmol/L (98-107); Globulin 2.7 g/dL (1.3-4.6); Glomerular Filtration Rate 163.9 mL/min (90-130); Glucose 180 mg/dL (65-115); Magnesium 2.2 mg/dL (1.7-2.3); Osmolality Calculated 297 mOsm/kg (285-295); Phosphorus 2.5 mg/dL (2.5-4.5); Sodium 140 mmol/L (136-145); Total Bilirubin 0.2 mg/dL (0.15-1.2); Total Protein 6.1 g/dL (6.6-8.7)
[2020-03-30 08:00] LABS: Anion Gap 14.5 (5-19); Potassium 3.5 mmol/L (3.5-5.1)
[2020-03-30] MEDS: amlodipine 5 mg Tablet PO (08:03)
--- NOTE | 2020-03-30 09:12 | PC.RESP ---
PULMONARY REHAB INFORMATION SENT TO PATIENT.
--- NOTE | 2020-03-30 09:32 | PC.CHAP ---
Pastoral Care Encounter/Spiritual Assessment Type of Contact [] Declined data processing control clerk visit [] Patient/Family/Request visit [] Outpatient visit [] Follow-up visit [] Physician referral [] Code/Alert [] Routine visit [] Staff referral [] Actively dying [] Patient sleeping [] Family support [] [] Out of room [] Palliative care [] [] Receiving care in room [] Pre-surgical visit [] Trauma [] Long length of stay [] ICU visit [] Other: Relational/Emotional Strength [] Patient feels connected with others/family/visitors/staff [] Distress [] Loneliness/isolation [] Abandonment Spirituality of Patient [] Person of Clarisa [] Attends Yazidi of their Clarisa [] Believes in Prayer [] Reads Bible or Quaker materials [] There are Spiritual issues to be addressed Web Operations Lead Interventions [x] Prayer [] Active listening [] Non-anxious presence [] Spiritual/emotional support [] Crisis/trauma care [] Spiritual counseling [] Bereavement support [] Provided bereavement packet [] Provided Bible/devotional materials [] Provided toy/stuffed animal, coloring book to patient or family member [] Provided Communion [] Anointing/[place] [] Salvation [x] Completed spiritual assessment [] Other: Impact on Illness or Injury [] Angry [] Fearful [] Anxious [] Often cries [] Exhaustion [] Unable to work [] Unable to attend jewish [] Unable to walk/stand [] Unable to read [] Unable to drive [] Unable to eat/drink [] Unable to sleep [] Unable to be with family [] Patient intubated [] Other: Summary Time spent with patient
[2020-03-30] MEDS: FUROsemide 10 mg/mL SDV 4mL 40 MG IVP (14:24)
--- NOTE | 2020-03-30 14:31 | PC.NURSE ---
Patient was extubated at 1440 with two nurses and respiratory therapist at bedside. Oxygen was applied. PT tolerated well
[2020-03-30] MEDS: enoxaparin 40 mg/0.4 mL Syringe SUBCUT (15:39)
--- NOTE | 2020-03-30 16:58 | PC.NURSE ---
1430-- EXTUBATED BY RESP THERAPY. PLACED ON HHFNC 50% & 40LITERS. REQUIRES FREQUENT REDIRECTION.
--- NOTE | 2020-03-30 17:03 | PC.NURSE ---
1500- PT REMAINS CONFUSED & NOT ABLE TO REDIRECT. HAS LEGS FLOPPING UP OVER HER HEAD. REMAINS RESTRAINED D/T PULLING AT IV'S & PACHECO CATHETER. REMAINS CONFUSED. FLOPS AROUND IN BED SO MUCH THAT WON'T KEEP NC ON FACE.. & SON HERE TO VISIT. PT REMAINS CONFUSED AT TIMES BUT FREQUENTLY APOLOGIZES TO THEM FOR HER BEHAVIOR & NOT BEING A GOOD MOM. THEN TURNS AROUND AND ASKS HIM FOR SOME OXYCONTIN, HER REPLIED THAT SHE DOESN'T TAKE THAT. AND PT REPLIED THAT YES SHE DID.
[2020-03-30] MEDS: methadone 10 mg Tablet 30 MG PO (17:20)
[2020-03-30] MEDS: azithromycin 500 MG in sodium chloride 0.9% 250 ML 250 MG IV (17:33)
[2020-03-30] MEDS: labetalol 5 mg/mL SDV 20mL 10 MG IVP (18:05)
--- NOTE | 2020-03-30 18:15 | PC.NURSE ---
DR BRUNER TO FLOOR TO ASSESS PT BEHAVIOR, NEW ORDERS RECEIVED. PT CONTINUES TO FLOP AROUND IN BED, YELLING OUT, PULLING AT RESTRAINTS. UNABLE TO REDIRECT PT.
[2020-03-30] MEDS: haloperidol inj 5 mg/mL INJ 1 mL IM (18:30)
[2020-03-30] MEDS: morphine 4 mg/mL SDV 1 mL 2 MG IVP (19:01)
[2020-03-30] MEDS: etomidate 20 ML 10 MG (19:30)
--- NOTE | 2020-03-30 19:36 | XRR_ITS ---
PROCEDURE INFORMATION: Exam: XR Chest, 1 View Exam date and time: 03/30/2020 7:57 PM Age: 59 years old Clinical indication: Device placement; Ett placement (vent status); Patient HX: Ng and intubated; Additional info: Intubation TECHNIQUE: Imaging protocol: XR of the chest Views: 1 view. COMPARISON: CR XR chest 1V portable [id number] 03/29/2020 4:06 AM FINDINGS: Tubes, catheters and devices: Kary obscured. Possible interval minimal retraction of the tip of the ET tube to its current position at the top of the aortic arch. Tip of the enteric tube still below the diaphragm and possibly evident currently in the gastric body. Probable extrinsic positioning of a large bore tube over the right mid chest. Possible extrinsic positioning of a small tube over the right axilla and upper chest. Lungs: Interval increase in the lung volumes and decrease in the interstitial disease in the lung bases. No obvious airspace disease in the right lung base currently. Continued slightly increased interstitial markings in the upper right lung. Pleural space: No obvious pneumothorax. Still no large pleural effusion. Very small amount of pleural fluid in the right lateral angle still not excluded. Heart/Mediastinum: Still no cardiomegaly. Vasculature: Interval disappearance of the azygos vein distension. Continued aortic elongation. Bones/joints: No visible acute bony disease. XR/XR chest 1V portable [id number] IMPRESSION: 1. Endotracheal and enteric tubes in adequate position. 2. Interval increase in the lung volumes and decrease in the bibasilar lung disease. Other findings detailed above.
[2020-03-30] MEDS: dexmedetomidine 400 MCG in sodium chloride 0.9% (100 ml) 100 ML 21.9 MCG IV (20:00)
[2020-03-30] MEDS: succinylcholine 20 mg/mL SDV 10mL 200 MG (20:05)
--- NOTE | 2020-03-30 20:06 | PM.PN ---
Subjective Subjective: Interval history: Currently Intubated and sedated and on mechanical ventilation.Off sedation GCS is 10T. Afebrile,Other vitals are stable. Labs Reviewed Good urine output, Medications: Reviewed: Yes Vitals/I&O/Wt Last Vital Signs Temp 97.2 F L 03/30/20 04:00 Pulse 95 03/30/20 18:00 Resp 14 03/30/20 19:57 BP 202/104 03/30/20 18:00 Pulse Ox 97 03/30/20 18:00 03/30/20 03/30/20 03/30/20 06:59 14:59 22:59 Intake Total 499.934 / 2038.433 900.126 / 900.126 176.887 / 1077.013 Output Total 1200 / 3650 850 / 850 2950 / 3800 Balance -700.066 / -1611.567 50.126 / 50.126 -2773.113 / -2722.987 Weight last 48 hrs Weight 84.096 kg Weight 84.323 kg Physical Exam Resp: COMMON NORMALS: clear to auscultation bilaterally AUSCULTATION: clear to auscultation bilaterally Cardio: COMMON NORMALS: regular rate, regular rhythm, S1 normal heart sound present, S2 normal heart sound present, No gallops present (Cardio), No murmurs present (Cardio), No rub (Cardio) and Peripheral pulses 2+ throughout RATE: regular rate RHYTHM: regular rhythm HEART SOUNDS: S1 normal heart sound present and S2 normal heart sound present PERIPHERAL PULSES: Peripheral pulses 2+ throughout GI: COMMON NORMALS: Normal to inspection, nondistended, normoactive bowel sounds present, Soft to palpation, non-tender, No hepatosplenomegaly present and no masses AUSCULTATION: Yes normoactive bowel sounds PALPATION: Yes Soft to palpation and Yes No hepatosplenomegaly present RECTAL EXAM: deferred Extremity: COMMON NORMALS: no clubbing, cyanosis or edema and no pedal edema Urinary Catheter Management^: Ryder: Cath Placed During This Visit: yes Reason for Continuing Indwelling Catheter: Accurate Measurement of Urinary Output in Critically Ill Patients Urinary Catheter Date of Insertion: 03/27/20 Urinary Catheter Time of Insertion: 22:30 Data : 03/30/20 04:49 03/30/20 06:53 Micro: Microbiology 03/27/20 22:47 Sputum Culture - Final Sputum - Endotracheal Tube Aspirate Strep agalactiae - (group b) 03/28/20 20:00 Urine Culture - Preliminary Urine Catheterized 03/28/20 19:50 Blood Culture - Preliminary Blood NEGATIVE TO DATE 03/28/20 18:15 Blood Culture - Preliminary Blood NEGATIVE TO DATE A&P Assessment and plan (1) Sepsis: -Sepsis 2/2 to PNA -Patient was hypotensive, tachypenic , has Pneumonia. Responded to fluid bolus, was on Levophed briefly -Currently off pressors -C.T.A :Has ruled out P.E. More in line with PNA ( As evidenced by : diffuse of the opacity and peripheral consolidation in the right middle lobe in keeping with pneumonia. There is also ground-glass and alveolar opacity in the upper lobes abutting the fissures and posteriorly at the lung bases more on the right than on the left also some peripheral consolidation the right lower lobe in keeping with pneumonia ) -Blood Culture:Negative till date -urine culture ; -sputum culture : STREPTOCOCCUS AGALACTIAE ( GROUP B STREP) -Procal: 0.91 , Lactic acid : 0.7 -Initially on Cef and Azithro. Discontinued -on Van , imipenam as well as azithromycin ( 03/28) Status: Acute (2) Acute encephalopathy: Gorgeley 2/ opoid withdrawal. C.T Head without contrast :No acute intracranail pathology Sepsis management as above. Currently on Precedex, versed, fentenyl, and ativan PRN Received methadone 30 mg oral today.Started on Methadone 60 mg q12 h daily ( 03/30). Status: Acute (3) Pneumonia: COVID -19 :RT-PCR :Negative Rapid :Negative Plan as 1 Status: Acute (4) Respiratory failure: Ac Hypoxic hypercapnic r/f 2/2 PNA /COPD Exacerbation 2/2 to PNA AM ABG : Has shown improvement in oxygenation, we have decreased FIO2 to 45 % Currently On AC-VC- Tv :450 cc, R/R: 14, PEEP:8 , FIO 2: 45 ,PIP: 18 Xray chest: Interstitial and asymmetric airspace disease, with mild interval improvement in right basilar airspace disease. Continue mechanical Vent for now. Status: Acute (5) COPD exacerbation: DUO NEBS Solu-Medrol 60 mg IV every 12h Status: Acute (6) Hypertension: Clonidine 0.1 mg TID amlodipine 5 mg oral daily Status: Acute (7) Transaminitis: Improving Monitor liver function test. 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
--- NOTE | 2020-03-30 21:31 | PC.NURSE ---
Pt confused, extremely agitated and restless, pulling out PIVs and other lines, attempts to get out of bed; although pt repeatedly calls out, i want to be in bed ; unable to redirect pt. MD at bedside and decision to re-intubate pt for patient safety. Successfully intubated at 1930 with succinylcholine and etomidate (see MAR for exact doses). ETT size 8, 23 @ lip.
[2020-03-30] MEDS: propofol 1,000 MG/100 ML INJ 32.6 MG IV (22:57)
--- NOTE | 2020-03-30 23:31 | PM.ACPR ---
Acute Procedures Intubation: Time out performed: Yes Sedative: etomidate Paralytic: succinylcholine Laryngoscope: fiber optic video scope Assist device used: fiber optic device ET tube size: 8 ET tube uncuffed: Yes Tube secured depth (cm): 24 Tube secured location: lips Tube placement confirmation: visualized tube passing through cords and equal breath sounds bilaterally Patient tolerated procedure: well Intubation complications: none
[2020-03-31] VITALS (109 sets, daily range): BP systolic 93–152; BP diastolic 48–80; PULSE 52–89; RESP 14–20; TEMP 36.5–37.1; O2SAT 87–96
[2020-03-31] MEDS: propofol 1,000 MG/100 ML INJ 32.6 MG IV ×4 (01:43→12:12)
[2020-03-31] MEDS: ipratropium-albuterol 3 mL Neb INHALATION ×4 (03:13→20:19)
[2020-03-31 04:26] LABS: ABG PCO2 42.6 mmHg (35-45); ABG PH Result 7.47 (7.35-7.45); Arterial Blood Gas Hematocrit 41.7 % (37-47); Base Excess ABG 6.4 mmol/L (-2.0-2.0); Blood Gas Allen Test Pos; Blood Gas Operator Identificat JB; Blood Gas Sample Site Radial, right; Blood Gas Sample Type Arterial; Blood Gas Tidal Volume 0.45; HCO3 ABG 30.9 mmol/L (22-26); Oxygen Device VENT
[2020-03-31 04:55] LABS: Basophils % 0.2 %; Hematocrit 36.6 % (37.0-47.0); Hemoglobin 11.7 g/dL (11.5-15.3); Lymphocytes # 1.2 10^3/uL (0.8-4.8); Lymphocytes % 11.9 %; Mean Corpuscular Hemoglobin 27.7 pg (28.0-34.0); Mean Corpuscular Volume 86.7 fL (81-99); Mean Platelet Volume 9.5 fL (7.4-10.4); Monocytes # 0.4 10^3/uL (0.2-0.9); Monocytes % 4.5 %; Neutrophils # 7.97 10^3/uL (1.8-7.7); Neutrophils % 81.6 %; Nucleated Red Blood Cells % 0 %; Platelet Count 417 10^3/cmm (130-400); Red Blood Count 4.22 10^6/uL (4.1-5.3); Red Cell Distribution Width 13.8 % (12.1-15.1); White Blood Count 9.8 10^3/uL (4.0-10.0)
[2020-03-31 05:21] LABS: Alanine Aminotransferase 43 U/L (0-33); Albumin Level 3.4 g/dL (3.5-5.2); Alkaline Phosphatase 75 IU/L (35-105); Anion Gap 14.9 (5-19); Aspartate Amino Transferase 24 U/L (0-32); Blood Urea Nitrogen 21 mg/dL (6-20); Calcium 8.7 mg/dL (8.5-10.5); Carbon Dioxide 29 mmol/L (22-29); Chloride 101 mmol/L (98-107); Globulin 2.7 g/dL (1.3-4.6); Glomerular Filtration Rate 126.7 mL/min (90-130); Glucose 180 mg/dL (65-115); Magnesium 2.1 mg/dL (1.7-2.3); Osmolality Calculated 302 mOsm/kg (285-295); Sodium 142 mmol/L (136-145); Total Bilirubin 0.3 mg/dL (0.15-1.2); Total Protein 6.1 g/dL (6.6-8.7)
[2020-03-31 05:32] LABS: Potassium 2.9 mmol/L (3.5-5.1)
[2020-03-31] MEDS: potassium chloride premix 100 ML 25 MEQ IV ×2 (06:04→06:14)
[2020-03-31] MEDS: lidocaine 1% INJ 20 mL 5 ML IV (06:13)
[2020-03-31] MEDS: dexmedetomidine 400 MCG in sodium chloride 0.9% (100 ml) 100 ML IV (08:18)
[2020-03-31] MEDS: amlodipine 5 mg Tablet PO (08:24)
[2020-03-31] MEDS: methadone 10 mg Tablet 60 MG PO ×2 (08:27→17:32)
--- NOTE | 2020-03-31 09:26 | PC.CHAP ---
Pastoral Care Encounter/Spiritual Assessment Type of Contact [] Declined bacteriology technician visit [] Patient/Family/Request visit [] Outpatient visit [] Follow-up visit [] Physician referral [] Code/Alert [] Routine visit [] Staff referral [] Actively dying [] Patient sleeping [] Family support [] [] Out of room [] Palliative care [] [] Receiving care in room [] Pre-surgical visit [] Trauma [] Long length of stay [] ICU visit [] Other: Relational/Emotional Strength [] Patient feels connected with others/family/visitors/staff [] Distress [] Loneliness/isolation [] Abandonment Spirituality of Patient [] Person of Clarisa [] Attends Hindu of their Clarisa [] Believes in Prayer [] Reads Bible or Hoahaoism materials [] There are Spiritual issues to be addressed Tab Card Press Operator Interventions [x] Prayer [] Active listening [] Non-anxious presence [] Spiritual/emotional support [] Crisis/trauma care [] Spiritual counseling [] Bereavement support [] Provided bereavement packet [] Provided Bible/devotional materials [] Provided toy/stuffed animal, coloring book to patient or family member [] Provided Communion [] Anointing/[place] [] Salvation [x] Completed spiritual assessment [] Other: Impact on Illness or Injury [] Angry [] Fearful [] Anxious [] Often cries [] Exhaustion [] Unable to work [] Unable to attend religious [] Unable to walk/stand [] Unable to read [] Unable to drive [] Unable to eat/drink [] Unable to sleep [] Unable to be with family [] Patient intubated [] Other: Summary Time spent with patient
--- NOTE | 2020-03-31 10:48 | P.PN_ITS ---
Subjective Subjective: Interval history: Patient remain intubated and sedated,currently on mechanical ventilation.Off sedation GCS is :10T Afebrile. Has remained afebrile, has good urine output. labs have been reviewed. Medications: Reviewed: Yes Vitals/I&O/Wt Last Vital Signs Temp 97.7 F 03/31/20 07:15 Pulse 88 03/31/20 09:00 Resp 18 03/31/20 08:07 BP 107/49 03/31/20 09:00 Pulse Ox 94 03/31/20 09:00 03/30/20 03/31/20 03/31/20 22:59 06:59 14:59 Intake Total 276.038 / 1176.164 728.098 / 1904.262 159.087 / 159.087 Output Total 2950 / 3800 450 / 4250 175 / 175 Balance -2673.962 / -2623.836 278.098 / -2345.738 -15.913 / -15.913 Weight last 48 hrs Weight 84.096 kg Weight 84.096 kg Physical Exam HENMT: COMMON NORMALS: normocephalic and atraumatic HEAD & SCALP: normocephalic and atraumatic Resp: COMMON NORMALS: clear to auscultation bilaterally EFFORT & INSPECTION: Yes symmetric chest movement AUSCULTATION: clear to auscultation bilaterally Cardio: COMMON NORMALS: regular rate, regular rhythm, S1 normal heart sound present, S2 normal heart sound present, No gallops present (Cardio), No murmurs present (Cardio), No rub (Cardio) and Peripheral pulses 2+ throughout RATE: regular rate RHYTHM: regular rhythm HEART SOUNDS: S1 normal heart sound present and S2 normal heart sound present PERIPHERAL PULSES: Peripheral pulses 2+ throughout GI: COMMON NORMALS: Normal to inspection, nondistended, normoactive bowel sounds present, Soft to palpation, non-tender, No hepatosplenomegaly present and no masses AUSCULTATION: Yes normoactive bowel sounds PALPATION: Yes Soft to palpation and Yes No hepatosplenomegaly present RECTAL EXAM: deferred Extremity: COMMON NORMALS: no clubbing, cyanosis or edema and no pedal edema Urinary Catheter Management^: Ryder: Cath Placed During This Visit: yes Reason for Continuing Indwelling Catheter: Accurate Measurement of Urinary Output in Critically Ill Patients Urinary Catheter Date of Insertion: 03/27/20 Urinary Catheter Time of Insertion: 22:30 Data : 03/31/20 03:04 03/31/20 03:04 Micro: Microbiology 03/28/20 20:00 Urine Culture - Final Urine Catheterized 03/27/20 22:47 Sputum Culture - Final Sputum - Endotracheal Tube Aspirate Strep agalactiae - (group b) A&P Assessment and plan (1) Acute encephalopathy: Likley 2/2 opoid withdrawal. C.T Head without contrast :No acute intracranail pathology Sepsis management as above. Currently on Precedex, versed, fentenyl,propofol, and ativan PRN Received methadone 30 mg oral today.Started on Methadone 60 mg q12 h daily ( 03/30). Status: Acute (2) Pneumonia: COVID -19 :RT-PCR :Negative Rapid :Negative Plan as 1 Status: Acute (3) Respiratory failure: Ac Hypoxic hypercapnic r/f 2/2 PNA /COPD Exacerbation 2/2 to PNA AM ABG : Has shown improvement in oxygenation, we have decreased FIO2 to 45 % Currently On AC-VC- Tv :450 cc, R/R: 14, PEEP:8 , FIO 2: 45 ,PIP: 18 Xray chest: Interstitial and asymmetric airspace disease, with mild interval improvement in right basilar airspace disease. Continue mechanical Vent for now. Status: Acute (4) Hypokalemia: Serum K :2.9 Pottasium replacement Monitor BMP Status: Acute (5) Sepsis: -Sepsis 2/2 to PNA -Patient was hypotensive, tachypenic , has Pneumonia. Responded to fluid bolus, was on Levophed briefly -Currently off pressors -C.T.A :Has ruled out P.E. More in line with PNA ( As evidenced by : diffuse of the opacity and peripheral consolidation in the right middle lobe in keeping with pneumonia. There is also ground-glass and alveolar opacity in the upper lobes abutting the fissures and posteriorly at the lung bases more on the right than on the left also some peripheral consolidation the right lower lobe in keeping with pneumonia ) -Blood Culture:Negative till date -urine culture ; -sputum culture : STREPTOCOCCUS AGALACTIAE ( GROUP B STREP) -Procal: 0.91 , Lactic acid : 0.7 -Initially on Cef and Azithro. Discontinued -on Van , imipenam as well as azithromycin ( 03/28) Status: Acute (6) COPD exacerbation: DUO NEBS Solu-Medrol 60 mg IV every 12h Status: Acute (7) Hypertension: Clonidine 0.1 mg TID amlodipine 5 mg oral daily Status: Acute (8) Transaminitis: Improving Monitor liver function test. Status: Acute Additional A&P Information Code Status :Full Code DVT PPX: On lovenox 40 mg sc daily Disposition :Home once stable Attestations Medical Necessity Statement*: Patient needs to be in hospital for the management of R.F 2/2 PNA , Encephalopathy Coding Level of Care Code Acute [facility] [employer] for [facility] Fwd Diagnoses Acute encephalopathy G93.40 Pneumonia J18.9 Respiratory failure J96.90 Hypokalemia E87.6 Sepsis A41.9 COPD exacerbation J44.1 Hypertension I10 Transaminitis R74.01
[2020-03-31] MEDS: propofol 1,000 MG/100 ML INJ 27.5 MG IV ×2 (16:05→19:30)
[2020-03-31] MEDS: enoxaparin 40 mg/0.4 mL Syringe SUBCUT (16:39)
[2020-03-31] MEDS: azithromycin 500 MG in sodium chloride 0.9% 250 ML 250 MG IV (17:24)
[2020-03-31 18:55] LABS: Vancomycin Trough 20.6 ug/mL (10-15)
[2020-04-01] VITALS (95 sets, daily range): BP systolic 101–164; BP diastolic 52–91; PULSE 54–84; RESP 14–23; TEMP 36.4–37.1; O2SAT 90–98
[2020-04-01] MEDS: propofol 1,000 MG/100 ML INJ 27.5 MG IV (00:06)
[2020-04-01] MEDS: vancomycin 1,250 MG/250 ML PIGGYBACK 250 MG IV ×2 (00:08→13:03)
[2020-04-01] MEDS: ipratropium-albuterol 3 mL Neb INHALATION ×4 (02:53→20:08)
[2020-04-01 03:36] LABS: Basophils % 0.2 %; Hematocrit 36.1 % (37.0-47.0); Hemoglobin 11.1 g/dL (11.5-15.3); Lymphocytes % 15.9 %; Mean Corpuscular HGB Conc 30.7 g/dL (30.0-36.0); Mean Corpuscular Hemoglobin 27.2 pg (28.0-34.0); Mean Corpuscular Volume 88.5 fL (81-99); Mean Platelet Volume 9.3 fL (7.4-10.4); Monocytes # 0.3 10^3/uL (0.2-0.9); Neutrophils # 4.72 10^3/uL (1.8-7.7); Neutrophils % 74.2 %; Nucleated Red Blood Cells % 0 %; Platelet Count 375 10^3/cmm (130-400); Red Blood Count 4.08 10^6/uL (4.1-5.3); Red Cell Distribution Width 14.1 % (12.1-15.1); White Blood Count 6.4 10^3/uL (4.0-10.0)
[2020-04-01] MEDS: propofol 1,000 MG/100 ML INJ 32.6 MG IV ×2 (03:47→05:40)
[2020-04-01 04:02] LABS: Alanine Aminotransferase 34 U/L (0-33); Albumin Level 3.1 g/dL (3.5-5.2); Alkaline Phosphatase 63 IU/L (35-105); Anion Gap 10.6 (5-19); Aspartate Amino Transferase 26 U/L (0-32); Blood Urea Nitrogen 17 mg/dL (6-20); Calcium 8.5 mg/dL (8.5-10.5); Carbon Dioxide 28 mmol/L (22-29); Chloride 106 mmol/L (98-107); Globulin 2.4 g/dL (1.3-4.6); Glomerular Filtration Rate 126.7 mL/min (90-130); Glucose 159 mg/dL (65-115); Magnesium 2.2 mg/dL (1.7-2.3); Osmolality Calculated 297 mOsm/kg (285-295); Potassium 3.6 mmol/L (3.5-5.1); Sodium 141 mmol/L (136-145); Total Bilirubin 0.2 mg/dL (0.15-1.2); Total Protein 5.5 g/dL (6.6-8.7)
[2020-04-01 04:25] LABS: ABG PCO2 50.5 mmHg (35-45); ABG PH Result 7.38 (7.35-7.45); Alveolar-Arterial Oxygen Gradi 35.5 mmHg (5-10); Arterial Blood Gas Hematocrit 35.7 % (37-47); Base Excess ABG 4.2 mmol/L (-2.0-2.0); Blood Gas Sample Site Brachial, right; Blood Gas Sample Type Arterial; Blood Gas Tidal Volume 0.45; Carboxyhemoglobin 0.8 %THgb (0.4-20.1); HCO3 ABG 30.2 mmol/L (22-26); HGB O2 Sat 89.3 % (95-100); Ionized Calcium Level - ABG 1.2 mmol/L (1.1-1.4); Methemoglobin 1.6 % (0.4-1.5); Oxygen Device VENT; Oxygen Saturation ABG 91.5; Potassium Level - ABG 3.5 mmol/L (3.5-5.0); Total Hemoglobin 11.6 g/dL (12-16)
[2020-04-01] MEDS: dexmedetomidine 400 MCG in sodium chloride 0.9% (100 ml) 100 ML IV (05:42)
--- NOTE | 2020-04-01 08:17 | XR_ITS ---
WS: [id number] Exam: XR chest 1V portable [id number] Date/Time of Exam: 04/01/2020 8:17 AM Reason For Exam: PNA Comparison 03/30/2020. There is atelectasis and consolidating infiltrate in the right lower lobe. The left lung remains debbie r. The lungs are completely expanded. Heart size is within normal limits for technique. An ET tube is in place ending about 4 cm above the loretta in good position. An enteric tube ends in the body the s tomach. The mediastinum and bony thorax are unremarkable. Monitoring leads superimpose the chest. XR/XR chest 1V portable [id number] IMPRESSION: 1. Atelectasis and consolidating infiltrate in the right lower lobe. 2. ET tube and enteric tube both in satisfactory position.
[2020-04-01] MEDS: methadone 10 mg Tablet 30 MG PO ×2 (08:29→17:20)
[2020-04-01] MEDS: amlodipine 5 mg Tablet PO (08:29)
[2020-04-01] MEDS: propofol 1,000 MG/100 ML INJ 22.5 MG IV ×3 (09:21→23:52)
[2020-04-01] MEDS: FUROsemide 10 mg/mL SDV 2mL 20 MG IVP (09:24)
[2020-04-01] MEDS: propofol 1,000 MG/100 ML INJ 15 MG IV (14:36)
--- NOTE | 2020-04-01 15:04 | PM.PN ---
Subjective Subjective: Interval history: Patient is intubated and sedated,off sedation GCS 10T. sedation break was done at that time she is moving all her extremity. Good urine out put. Vitals are stable, Labs have been reviewed Medications: Reviewed: Yes Vitals/I&O/Wt Last Vital Signs Temp 97.6 F 04/01/20 04:00 Pulse 57 L 04/01/20 14:55 Resp 16 04/01/20 14:55 BP 160/79 04/01/20 14:15 Pulse Ox 93 04/01/20 14:55 04/01/20 04/01/20 04/01/20 06:59 14:59 22:59 Intake Total 633.022 / 1828.042 366.366 / 366.366 Output Total 450 / 1000 Balance 183.022 / 828.042 366.366 / 366.366 Weight last 48 hrs Weight 79.379 kg Weight 84.096 kg Physical Exam HENMT: COMMON NORMALS: normocephalic and atraumatic HEAD & SCALP: normocephalic and atraumatic Eye: COMMON NORMALS: no scleral icterus GENERAL EYE: appearance normal, both eyes and all related structures Chest: COMMONS NORMALS: normal inspection of the chest and normal palpation of entire chest wall CHEST: Yes Symmetrical chest wall rise Resp: COMMON NORMALS: normal respiratory effort, No retractions, No use of accessory muscles and clear to auscultation bilaterally EFFORT & INSPECTION: Yes symmetric chest movement AUSCULTATION: clear to auscultation bilaterally Cardio: COMMON NORMALS: regular rate, regular rhythm, S1 normal heart sound present, S2 normal heart sound present, No gallops present (Cardio), No murmurs present (Cardio), No rub (Cardio) and Peripheral pulses 2+ throughout RATE: regular rate RHYTHM: regular rhythm HEART SOUNDS: S1 normal heart sound present and S2 normal heart sound present PERIPHERAL PULSES: Peripheral pulses 2+ throughout GI: COMMON NORMALS: Normal to inspection, nondistended, normoactive bowel sounds present, Soft to palpation, non-tender, No hepatosplenomegaly present and no masses AUSCULTATION: Yes normoactive bowel sounds PALPATION: Yes Soft to palpation and Yes No hepatosplenomegaly present RECTAL EXAM: deferred Extremity: COMMON NORMALS: no clubbing, cyanosis or edema and no pedal edema Urinary Catheter Management^: Ryder: Cath Placed During This Visit: yes Reason for Continuing Indwelling Catheter: Accurate Measurement of Urinary Output in Critically Ill Patients Urinary Catheter Date of Insertion: 03/27/20 Urinary Catheter Time of Insertion: 22:30 Data : 04/01/20 03:00 04/01/20 03:00 A&P Assessment and plan (1) Acute encephalopathy: Gorgeley 2/ opoid withdrawal. C.T Head without contrast :No acute intracranail pathology Sepsis management as above. Currently on Precedex, ativan, fentenyl,propofol, and ativan PRN Received methadone 30 mg oral today.Started on Methadone 30 mg q12 h daily ( 03/30). Status: Acute (2) Pneumonia: COVID -19 :RT-PCR :Negative Rapid :Negative Plan as 1 Status: Acute (3) Respiratory failure: Ac Hypoxic hypercapnic r/f 2/2 PNA /COPD Exacerbation 2/2 to PNA AM ABG : Has shown improvement in oxygenation, we have decreased FIO2 to 45 % Currently On AC-VC- Tv :450 cc, R/R: 14, PEEP:10 , FIO 2: 60 % ,PIP: 18 Xray chest: Interstitial and asymmetric airspace disease, with mild interval improvement in right basilar airspace disease. Continue mechanical Vent for now. Status: Acute (4) Hypokalemia: Serum K :2.9 Pottasium replacement Monitor BMP Status: Acute (5) Sepsis: -Sepsis 2/2 to PNA -Patient was hypotensive, tachypenic , has Pneumonia. Responded to fluid bolus, was on Levophed briefly -Currently off pressors -C.T.A :Has ruled out P.E. More in line with PNA ( As evidenced by : diffuse of the opacity and peripheral consolidation in the right middle lobe in keeping with pneumonia. There is also ground-glass and alveolar opacity in the upper lobes abutting the fissures and posteriorly at the lung bases more on the right than on the left also some peripheral consolidation the right lower lobe in keeping with pneumonia ) -Blood Culture:Negative till date -urine culture ; -sputum culture : STREPTOCOCCUS AGALACTIAE ( GROUP B STREP) -Procal: 0.91 , Lactic acid : 0.7 -Initially on Cef and Azithro. Discontinued -on Van , imipenam as well as azithromycin ( 03/28) Status: Acute (6) COPD exacerbation: DUO NEBS Solu-Medrol 60 mg IV every 12h Status: Acute (7) Hypertension: Clonidine 0.1 mg TID amlodipine 5 mg oral daily Status: Acute (8) Transaminitis: Improving Monitor liver function test. Status: Acute Additional A&P Information Code Status :Full Code DVT PPX: On lovenox 40 mg sc daily Disposition :Home once stable Attestations Medical Necessity Statement*: Patient needs to be in hospital for the management of Ac encephalopathy. Coding Level of Care Code Acute Director Of Infection Control for [facility] Fwd Diagnoses Acute encephalopathy G93.40 Pneumonia J18.9 Respiratory failure J96.90 Hypokalemia E87.6 Sepsis A41.9 COPD exacerbation J44.1 Hypertension I10 Transaminitis R74.01
[2020-04-01] MEDS: enoxaparin 40 mg/0.4 mL Syringe SUBCUT (15:42)
[2020-04-01] MEDS: cloNIDine 0.1 mg Tablet PO ×2 (15:43→20:42)
--- NOTE | 2020-04-01 16:18 | PC.NURSE ---
wean sedation Propofol turned off per Dr. Hills's order. Patient awoke 10 minutes later, follows simple commands, but still trashing around in bed, pulling at lines/tubes. Propofol turned back on. See Mar for medications rates.
[2020-04-01] MEDS: azithromycin 500 MG in sodium chloride 0.9% 250 ML 250 MG IV (17:18)
[2020-04-02] VITALS (47 sets, daily range): BP systolic 100–189; BP diastolic 48–103; PULSE 48–124; RESP 10–22; TEMP 36.4–36.6; O2SAT 87–98
[2020-04-02 01:09] LABS: Vancomycin Trough 13.5 ug/mL (10-15)
[2020-04-02] MEDS: vancomycin 1,250 MG/250 ML PIGGYBACK 250 MG IV ×2 (01:40→13:25)
[2020-04-02] MEDS: ipratropium-albuterol 3 mL Neb INHALATION ×4 (03:01→20:11)
[2020-04-02 03:38] LABS: Basophils % 0.1 %; Hematocrit 37.4 % (37.0-47.0); Hemoglobin 11.6 g/dL (11.5-15.3); Lymphocytes % 13.6 %; Mean Corpuscular Volume 90.1 fL (81-99); Mean Platelet Volume 9.1 fL (7.4-10.4); Monocytes # 0.3 10^3/uL (0.2-0.9); Monocytes % 4.2 %; Neutrophils # 5.88 10^3/uL (1.8-7.7); Neutrophils % 79.3 %; Nucleated Red Blood Cells % 0 %; Platelet Count 353 10^3/cmm (130-400); Red Blood Count 4.15 10^6/uL (4.1-5.3); Red Cell Distribution Width 14.4 % (12.1-15.1); White Blood Count 7.4 10^3/uL (4.0-10.0)
[2020-04-02 04:08] LABS: Alanine Aminotransferase 28 U/L (0-33); Albumin Level 3.2 g/dL (3.5-5.2); Alkaline Phosphatase 62 IU/L (35-105); Anion Gap 12.6 (5-19); Aspartate Amino Transferase 23 U/L (0-32); Blood Urea Nitrogen 15 mg/dL (6-20); Calcium 8.5 mg/dL (8.5-10.5); Carbon Dioxide 27 mmol/L (22-29); Chloride 105 mmol/L (98-107); Globulin 2.3 g/dL (1.3-4.6); Glomerular Filtration Rate 126.7 mL/min (90-130); Glucose 202 mg/dL (65-115); Magnesium 2.1 mg/dL (1.7-2.3); Osmolality Calculated 299 mOsm/kg (285-295); Potassium 3.6 mmol/L (3.5-5.1); Sodium 141 mmol/L (136-145); Total Bilirubin 0.2 mg/dL (0.15-1.2); Total Protein 5.5 g/dL (6.6-8.7)
[2020-04-02] MEDS: propofol 1,000 MG/100 ML INJ 25 MG IV (04:19)
[2020-04-02 04:47] LABS: ABG PCO2 42.9 mmHg (35-45); ABG PH Result 7.45 (7.35-7.45); Alveolar-Arterial Oxygen Gradi 40.4 mmHg (5-10); Arterial Blood Gas Hematocrit 36.8 % (37-47); Blood Gas Sample Site Brachial, right; Blood Gas Sample Type Arterial; Blood Gas Tidal Volume 0.45; Carboxyhemoglobin 0.7 %THgb (0.4-20.1); HCO3 ABG 29.6 mmol/L (22-26); HGB O2 Sat 92.1 % (95-100); Ionized Calcium Level - ABG 1.2 mmol/L (1.1-1.4); Methemoglobin 1.4 % (0.4-1.5); Oxygen Device VENT; PO2 ABG 67.5 mmHg (80.0-100.0); Potassium Level - ABG 3.5 mmol/L (3.5-5.0)
[2020-04-02] MEDS: dexmedetomidine 400 MCG in sodium chloride 0.9% (100 ml) 100 ML 6.6 MCG IV (06:39)
[2020-04-02] MEDS: amlodipine 5 mg Tablet PO (08:52)
[2020-04-02] MEDS: methadone 10 mg Tablet 30 MG PO ×2 (08:52)
[2020-04-02] MEDS: propofol 1,000 MG/100 ML INJ 22.5 MG IV ×2 (08:52→13:25)
--- NOTE | 2020-04-02 12:39 | PC.NURSE ---
Pt flopping around in the bed. Position change provided, no change. Precedex restarted at 0.3mcg/kg/hr.
--- NOTE | 2020-04-02 15:13 | PC.NURSE ---
Addendum entered by Carmen Maldonado RN 04/02/20 17:05: She squirms so much she has dislodged an IV site. Original Note: Pt scoots around in the bed frequently.
[2020-04-02] MEDS: azithromycin 500 MG in sodium chloride 0.9% 250 ML 250 MG IV (16:32)
[2020-04-02] MEDS: enoxaparin 40 mg/0.4 mL Syringe SUBCUT (16:33)
--- NOTE | 2020-04-02 16:55 | PC.NURSE ---
Fentanyl , Versed and Propofol remain off. Precedex infusing at 0.4mcg/kg/hr. Pt able to open eyes and squeeze hands on command, refuses to follow other commands. She is squirming all over the bed trying to reach the ETT. She has been repositioned 4x within the last hour. She is WILD, she will stop squirming at times to listen but resumes squirming immediately after.Dr Romeo notified at 1600 she was following commands and vent settings lwer, awaiting his arrival to determine if pt to extubate or not.
--- NOTE | 2020-04-02 17:05 | P.PN_ITS ---
Subjective Subjective: Interval history: Patient was extubated Medications: Reviewed: Yes Vitals/I&O/Wt Last Vital Signs Temp 98.2 F 04/03/20 00:00 Pulse 84 04/03/20 03:00 Resp 14 04/03/20 03:00 BP 181/88 04/03/20 03:00 Pulse Ox 95 04/03/20 03:00 04/02/20 04/02/20 04/03/20 14:59 22:59 06:59 Intake Total 801.041 / 801.041 596.942 / 1397.983 277.613 / 1675.596 Output Total 950 / 950 800 / 1750 Balance 801.041 / 801.041 -353.058 / 447.983 -522.387 / -74.404 Weight last 48 hrs Weight 79.379 kg Weight 79.379 kg Physical Exam Urinary Catheter Management^: Ryder: Cath Placed During This Visit: yes Reason for Continuing Indwelling Catheter: Accurate Measurement of Urinary Output in Critically Ill Patients Urinary Catheter Date of Insertion: 03/27/20 Urinary Catheter Time of Insertion: 22:30 Data : 04/02/20 03:25 04/02/20 03:25 Micro: Microbiology 03/28/20 19:50 Blood Culture - Final Blood NO GROWTH AFTER 5 DAYS 03/28/20 18:15 Blood Culture - Final Blood NO GROWTH AFTER 5 DAYS A&P Assessment and plan (1) Acute encephalopathy: Etiology multifactorial Withdrawal vs infectious Assess mental status post extubation May continue to require precedex Status: Acute (2) Pneumonia: COVID -19 :RT-PCR :Negative Rapid :Negative Plan as 1 Status: Acute (3) Respiratory failure: Ac Hypoxic hypercapnic r/f 2/2 PNA /COPD Exacerbation 2/2 to PNA Extubated, use BIPAP PRN Chest, x-ray in AM Xray chest: Interstitial and asymmetric airspace disease, with mild interval improvement in right basilar airspace disease. Status: Acute (4) Hypokalemia: Pottasium replacement Monitor BMP Status: Acute (5) Sepsis: -Sepsis 2/2 to PNA -Patient was hypotensive, tachypenic , has Pneumonia. Responded to fluid bolus, was on Levophed briefly -Currently off pressors -C.T.A :Has ruled out P.E. More in line with PNA ( As evidenced by : diffuse of the opacity and peripheral consolidation in the right middle lobe in keeping with pneumonia. There is also ground-glass and alveolar opacity in the upper lobes abutting the fissures and posteriorly at the lung bases more on the right than on the left also some peripheral consolidation the right lower lobe in keeping with pneumonia ) -Blood Culture:Negative till date -urine culture ; -sputum culture : STREPTOCOCCUS AGALACTIAE ( GROUP B STREP) -Procal: 0.91 , Lactic acid : 0.7 -Initially on Cef and Azithro. Discontinued -on Van , imipenam as well as azithromycin ( 03/28) -de-excalate abx based on further culture Status: Acute (6) COPD exacerbation: DUO NEBS Solu-Medrol 60 mg IV every 12h Status: Acute (7) Hypertension: Clonidine 0.1 mg TID amlodipine 5 mg oral daily Status: Acute (8) Transaminitis: Improving Monitor liver function test. Status: Acute Additional A&P Information Code Status :Full Code DVT PPX: On lovenox 40 mg sc daily Disposition :Home once stable Attestations Medical Necessity Statement*: Due to respiratory failure and ongoing management of sepsis will require further hospitalzation Time Spent in Patient Care: Greater than 35 minutes Critical Care Time: Critical Care Time (min): 35 Coding Level of Care Code Acute Director Of [facility] for [facility] Diagnoses Acute encephalopathy G93.40 Pneumonia J18.9 Respiratory failure J96.90 Hypokalemia E87.6 Sepsis A41.9 COPD exacerbation J44.1 Hypertension I10 Transaminitis R74.01
--- NOTE | 2020-04-02 17:30 | PC.NURSE ---
Pt extubated. OG removed. RT and this nurse at bedside. Pt still squirming all over the bed, confused. Voice clear.
[2020-04-02] MEDS: LORazepam 2 mg/mL INJ 1 mL IVP ×2 (19:05→22:26)
[2020-04-02] MEDS: labetalol 5 mg/mL SDV 20mL 10 MG IVP (19:06)
--- NOTE | 2020-04-02 19:27 | PC.NURSE ---
Addendum entered by Fariha Kirk RN 04/02/20 20:57: Witnessed waste of controlled medications with ЕЛЕНА Morales. Original Note: Fentanyl gtt wasted 35ml. Ativan gtt wasted 89.5ml. Witnessed by Fariha Kirk RN.
--- NOTE | 2020-04-02 19:29 | PC.NURSE ---
Shift summary: pt extubated after 1700 to 4lpm/NC. Pt confused. He is talking to her family telling stories about living over there . Lungs sounds are diminished. Voice clear. Pt able to sip water without difficulty. She has one IV site left, in her left forearm.. Precedex still infusing at 0.2mcg/kg/hr. She still squirms all over the bed, removing monitoring wires and nasal cannula. She has pulled on the mccollum catheter this evening too. Urine output of dark mikayla urine, 950ml. Her Roger has called 4 times today to check on her condition.
--- NOTE | 2020-04-02 19:36 | PC.NURSE ---
Agitation/confusion Pt is restless, confused. Multiple attempts made to redirect and reorient patient. Pt does not follow commands and does not follow safety commands. Pulling off oxygen and monitors. Making attempts to get out of bed. O2 sat on room air is 84%. Dr. Lee notified of situation as patient was extubated around 1730 this evening. Orders received to place in soft wrist restraints to allow for oxygen therapy and patient monitoring. Precedex gtt continues to infuse titrated to 0.03mcg/kg/hr.
[2020-04-02] MEDS: haloperidol inj 5 mg/mL INJ 1 mL IM (20:27)
[2020-04-02] MEDS: cloNIDine 0.1 mg Tablet PO (20:32)
[2020-04-02] MEDS: diphenhydrAMINE 50 mg/mL SDV 1mL 25 MG IVP (21:55)
[2020-04-02] MEDS: hyDRALAzine 20 mg/mL INJ 1 mL 10 MG IVP (23:55)
[2020-04-03] VITALS (28 sets, daily range): BP systolic 115–181; BP diastolic 54–107; PULSE 67–105; RESP 14–24; TEMP 36.6–37.6; O2SAT 90–98
--- NOTE | 2020-04-03 00:26 | PC.NURSE ---
Hallucinating Confusion persists. Pt yelling out at staff. rocking in bed yelling the bears are attacking her . Pt remains in bilateral wrist restraints. Making multiple attempts to get out of bed. Yelling at nurse don't cut my hair you skank . TAVIA, size 4. Patient oriented to person only. Will follow some commands and not others. Maintenance Parts Technician equal, speech is clear.
[2020-04-03] MEDS: vancomycin 1,250 MG/250 ML PIGGYBACK 166 MG IV (00:31)
[2020-04-03] MEDS: dexmedetomidine 400 MCG in sodium chloride 0.9% (100 ml) 100 ML 13.1 MCG IV (00:32)
[2020-04-03] MEDS: nitroglycerin 1 gm/inch oint Pkt 0.5 INCH TOPICAL (02:21)
[2020-04-03] MEDS: ipratropium-albuterol 3 mL Neb INHALATION ×2 (02:34→09:23)
[2020-04-03] MEDS: LORazepam 2 mg/mL INJ 1 mL IVP ×2 (03:02→07:55)
[2020-04-03 05:15] LABS: ABG PCO2 34.2 mmHg (35-45); ABG PH Result 7.53 (7.35-7.45); Arterial Blood Gas Hematocrit 41.8 % (37-47); Base Excess ABG 5.6 mmol/L (-2.0-2.0); Blood Gas Operator Identificat JB; Blood Gas Sample Site Brachial, right; Blood Gas Sample Type Arterial; Carboxyhemoglobin 0.9 %THgb (0.4-20.1); HCO3 ABG 28.3 mmol/L (22-26); HGB O2 Sat 92.9 % (95-100); Ionized Calcium Level - ABG 1.2 mmol/L (1.1-1.4); Methemoglobin 1.3 % (0.4-1.5); Oxygen Device NC; PO2 ABG 69.8 mmHg (80.0-100.0); Potassium Level - ABG 2.7 mmol/L (3.5-5.0); Total Hemoglobin 13.6 g/dL (12-16)
--- NOTE | 2020-04-03 05:45 | XR_ITS ---
WS: [id number] Exam: XR chest 1V portable [id number] Date/Time of Exam: 04/03/2020 5:45 AM Reason For Exam: pneumonia. s/p extubation Comparison 04/01/2020. Endotracheal tube and NG tube have been removed. Previously noted right lower lobe infiltrate and ate lectasis has almost completely resolved. Normal cardiomediastinal structures and bony elements. XR/XR chest 1V portable [id number] IMPRESSION: 1. Right basal infiltrate and atelectasis almost completely resolved since prio r study. 2. ET tube and NG tube have been removed.
[2020-04-03 06:03] LABS: Basophils % 0.1 %; Eosinophils % 0.1 %; Hematocrit 39.8 % (37.0-47.0); Hemoglobin 12.8 g/dL (11.5-15.3); Lymphocytes # 2.3 10^3/uL (0.8-4.8); Lymphocytes % 16.7 %; Mean Corpuscular HGB Conc 32.2 g/dL (30.0-36.0); Mean Corpuscular Hemoglobin 27.7 pg (28.0-34.0); Mean Corpuscular Volume 86.1 fL (81-99); Mean Platelet Volume 9.5 fL (7.4-10.4); Monocytes # 0.6 10^3/uL (0.2-0.9); Monocytes % 4.6 %; Neutrophils # 10.53 10^3/uL (1.8-7.7); Neutrophils % 77.3 %; Nucleated Red Blood Cells % 0 %; Platelet Count 439 10^3/cmm (130-400); Red Blood Count 4.62 10^6/uL (4.1-5.3); White Blood Count 13.6 10^3/uL (4.0-10.0)
[2020-04-03 06:34] LABS: Procalcitonin 0.05 ng/mL (0-0.5); Thyroid Stimulating Hormone 3.76 uIU/mL (0.27-4.20)
[2020-04-03 06:45] LABS: Alanine Aminotransferase 41 U/L (0-33); Albumin Level 3.7 g/dL (3.5-5.2); Alkaline Phosphatase 71 IU/L (35-105); Anion Gap 16.7 (5-19); Aspartate Amino Transferase 85 U/L (0-32); Blood Urea Nitrogen 13 mg/dL (6-20); Calcium 8.8 mg/dL (8.5-10.5); Carbon Dioxide 25 mmol/L (22-29); Chloride 101 mmol/L (98-107); Creatinine Clr Calc Pharmacy 149.9441; Globulin 2.4 g/dL (1.3-4.6); Glomerular Filtration Rate 163.9 mL/min (90-130); Glucose 111 mg/dL (65-115); Osmolality Calculated 291 mOsm/kg (285-295); Sodium 140 mmol/L (136-145); Total Bilirubin 0.6 mg/dL (0.15-1.2); Total Protein 6.1 g/dL (6.6-8.7)
[2020-04-03 07:28] LABS: Potassium 2.7 mmol/L (3.5-5.1)
--- NOTE | 2020-04-03 07:58 | PC.NURSE ---
very restless and agitated pulling iv and lines out and o2 . Ativan given at this time
[2020-04-03] MEDS: potassium chloride premix 100 ML 25 MEQ IV (08:52)
--- NOTE | 2020-04-03 09:29 | PC.NURSE ---
pt agitated and restless kicking legs ect ... and pulled out mccollum.. kirsten area cleaned and attends applied at this time
[2020-04-03] MEDS: cloNIDine 0.1 mg Tablet PO ×3 (09:33→20:20)
[2020-04-03] MEDS: methadone 10 mg Tablet 30 MG PO (09:33)
[2020-04-03] MEDS: amlodipine 5 mg Tablet PO (09:33)
--- NOTE | 2020-04-03 10:30 | PM.PN ---
Subjective Subjective: Interval history: 59-year-old female with a past medical history significant for gastroesophageal reflux disease, hypertension, and chronic obstructive pulmonary disease presented to the hospital with respiratory distress. initial laboratory workup on arrival showed a WBC of 7.1, hemoglobin at 10.6, hematocrit of 34.2 and a platelet count of 413. sodium 143, potassium 4.0, chloride 106, bicarb 23, BUN 24, creatinine of 0.6 and a glucose of 128. AST of 189, ALT of 85. TSH of 0.20. Arterial blood gases showed a pH of 7.30, pCO2 of 48.9, PO2 of 62. CT head did not show any acute abnormalities. Chest x-ray showed patchy opacities in right lower lobe consistent with pneumonia. COVID19 PCR was negative. Patient was started on Cefepime, azithromycin, Solu-medrol, DuoNebs and placed on BiPAP. She did not tolerate Bipap due to altered mental status. She was intubated and placed on mechanical ventilation. CTA Chest PE protocol was then performed which showed diffuse of the opacity and peripheral consolidation in the right middle lobe in keeping with pneumonia. There is also ground-glass and alveolar opacity in the upper lobes abutting the fissures and posteriorly at the lung bases more on the right than on the left also some peripheral consolidation the right lower lobe in keeping with pneumonia. No evidence of PE. Antibiotics were then changed to vancomycin pharmacy to dose, Imipenam and azithromycin. She was intermittently extubated however overnight on 03/27 due to continued combative behavior and mental status change she was re-intubated and placed on propofol, versed, fentanyl and precedex for sedation. Etiology of patient mental status change was unclear. Suspected to possibly be due to infection vs withdrawal from opiods. She as then started on methadone 30 mg PO BID. Patient was extubated on 04/02. in pm to UT. She was continued on precedex gtt due to ongoing agitation. 04/03/20 Overnight patient remained very confused and agitated. Pulled out mccollum. Continue to require precedex gtt with PRN ativan and haldol. Vitals/I&O/Wt Last Vital Signs Temp 97.8 F 04/03/20 08:00 Pulse 85 04/03/20 10:00 Resp 17 04/03/20 10:00 BP 141/83 04/03/20 10:00 Pulse Ox 98 04/03/20 10:00 04/02/20 04/03/20 04/03/20 22:59 06:59 14:59 Intake Total 696.942 / 1497.983 445.078 / 1943.061 36.535 / 36.535 Output Total 950 / 950 2550 / 3500 Balance -253.058 / 547.983 -2104.922 / -1556.939 36.535 / 36.535 Weight last 48 hrs Weight 79.742 kg Weight 79.379 kg Physical Exam Narrative: EXAM NARRATIVE: Chronically ill appearing HEENT: On NC, Grossly unremarkable Chest : decrease BS at B/L Bases R>L CVS: Regular rate and rythym Abd: Soft, NT Ext: No edema Neuro. A&O x 1(self) , Does not follow command, moving all extremities. Urinary Catheter Management^: Mccollum: Cath Placed During This Visit: yes Reason for Continuing Indwelling Catheter: Accurate Measurement of Urinary Output in Critically Ill Patients Urinary Catheter Date of Insertion: 03/27/20 Urinary Catheter Time of Insertion: 22:30 Data : 04/03/20 05:28 04/03/20 05:28 Micro: Microbiology 03/28/20 19:50 Blood Culture - Final Blood NO GROWTH AFTER 5 DAYS 03/28/20 18:15 Blood Culture - Final Blood NO GROWTH AFTER 5 DAYS A&P Assessment and plan (1) Acute encephalopathy: Status: Acute (2) Pneumonia: Status: Acute (3) COPD exacerbation: Status: Acute (4) Respiratory failure: Status: Acute (5) Sepsis: Status: Acute Acute hypoxemic/hypercapnic respiratory failure - Etiology multifactorial - Pneumonia vs undiagnosed underlying COPD - S/p Extubation on 04/02 - On supplemental o2 - wean as tolerated - 04/03 - ABG- Ph 7.53, Pco2 34.2, Po2 of 69.8, HCO3 28.3 on 4L via NC - Chest -xray today - > Right basal infiltrative and atelectasis - almost resolved. - Continue Duoneb - Will Discontinue Solu-medrol for now as it may be contributing to mental status change. Right lower lobe consolidative pnuemonia - Cefepime, Azithromycin on admission to 03/27- - Vancomycin,Azithromycin 03/28, Primixin added on 03/31 - Will transition to levaquin 750 mg PO daily tomorrow - Chest x-ray showed resolution of RLL infiltrates - Sputum culture - Strep agalactiae. - Blood culture x 2 - NGTD - Urine culture - negative Acute Encephalopathy - Multi-factorial, Infection vs opiod withdrawal vs ICU delirum - Will limit use of benzodiazapine - Stop methadone - Haldol PRN - May consider adding seroquel in PM - Wean off precedex - Head CT on admission - No acute IC abnormality Hypertension - Increase norvasc to 10 mg PO dialy - Clonidine 0.1 mg PO TID - No longer bradycardic - Will continue to titrate antihypertensives DVT ppx - Lovenox 40 mg SQ daily Attestations Medical Necessity Statement*: Due on going respiratory failure, agitation will require continued hospitalization Time Spent in Patient Care: Greater than 35 minutes Coding Level of Care Code Acute Behavioral Health Case Manager for [facility] Fwd Diagnoses Acute encephalopathy G93.40 Pneumonia J18.9 COPD exacerbation J44.1 Respiratory failure J96.90 Sepsis A41.9
[2020-04-03] MEDS: enoxaparin 40 mg/0.4 mL Syringe SUBCUT (16:54)
--- NOTE | 2020-04-03 19:49 | PC.NURSE ---
Patient becoming more restless and continues to ask for cigerattes. Called Dr. Lee and telephone orders verify read back received for Vistiril 25mg PO TID PRN and 21mg nicotine transdermal patch every 24 hours every day starting now.
[2020-04-03] MEDS: hyDROXYzine 25 mg Capsule PO (19:55)
[2020-04-03] MEDS: nicotine 21 mg Patch 1 PATCH TRANSDERMA (19:55)
[2020-04-03] MEDS: LORazepam 2 mg/mL INJ 1 mL 1 MG IVP (21:20)
[2020-04-03] MEDS: dexmedetomidine 400 MCG in sodium chloride 0.9% (100 ml) 100 ML 19.7 MCG IV (22:29)
[2020-04-03] MEDS: ziprasidone 20 mg/mL SDV IM (23:21)
--- NOTE | 2020-04-03 23:29 | PC.NURSE ---
Agitation: Patient continues to be agitated and restless. Patient is grabbing rails of bed and shaking them and yells out nonstop. Other PRN medications given per orders with no affect. Patient remains agitated. Called Dr. Lee and he ordered Geodon. Given IM per orders.
[2020-04-04] VITALS (22 sets, daily range): BP systolic 96–173; BP diastolic 57–86; PULSE 62–127; RESP 10–27; TEMP 36.7; O2SAT 92–97
[2020-04-04] MEDS: LORazepam 2 mg/mL INJ 1 mL 1 MG IVP ×4 (04:03→23:35)
[2020-04-04 04:37] LABS: Basophils % 0.2 %; Eosinophils # 0.2 10^3/uL (0.0-0.8); Eosinophils % 1.6 %; Hematocrit 41.5 % (37.0-47.0); Hemoglobin 13.2 g/dL (11.5-15.3); Lymphocytes # 3.2 10^3/uL (0.8-4.8); Lymphocytes % 26.4 %; Mean Corpuscular HGB Conc 31.8 g/dL (30.0-36.0); Mean Corpuscular Hemoglobin 27.8 pg (28.0-34.0); Mean Corpuscular Volume 87.4 fL (81-99); Mean Platelet Volume 9.4 fL (7.4-10.4); Monocytes # 0.7 10^3/uL (0.2-0.9); Monocytes % 6.1 %; Neutrophils # 7.91 10^3/uL (1.8-7.7); Nucleated Red Blood Cells % 0 %; Platelet Count 383 10^3/cmm (130-400); Red Blood Count 4.75 10^6/uL (4.1-5.3); White Blood Count 12.2 10^3/uL (4.0-10.0)
[2020-04-04] MEDS: haloperidol inj 5 mg/mL INJ 1 mL IM ×2 (04:41→23:07)
[2020-04-04] MEDS: diphenhydrAMINE 50 mg/mL SDV 1mL 25 MG IVP ×2 (04:45→22:53)
--- NOTE | 2020-04-04 04:51 | PC.NURSE ---
Patient continues to be very agitated and restless. All PRN medication has been given to help relieve patient with no results. Patient did respond to Geodon for approximately an hour, then back to being agitated and restless. Patient requires almost 1:1 care to redirect back to current happenings. Precedex drip is off and V/S are WNL. Continue care.
[2020-04-04 05:01] LABS: Ammonia 35 umol/L (11-51)
--- NOTE | 2020-04-04 05:02 | PC.NURSE ---
Hallucinating experiencing auditory and visual hallucinations. patient talking to people in her room that are not there. Pt making multiple attempts getting out of bed, agitated and restless. Kicking and rocking legs. Attempting to swing at staff. Multiple attempts to redirect and reorient patient, remains confused. Remains in soft wrist restraints.
[2020-04-04 05:03] LABS: Alanine Aminotransferase 50 U/L (0-33); Albumin Level 3.4 g/dL (3.5-5.2); Alkaline Phosphatase 71 IU/L (35-105); Anion Gap 14.4 (5-19); Aspartate Amino Transferase 107 U/L (0-32); Blood Urea Nitrogen 18 mg/dL (6-20); Carbon Dioxide 25 mmol/L (22-29); Chloride 102 mmol/L (98-107); Creatinine Clr Calc Pharmacy 151.0651; Globulin 2.5 g/dL (1.3-4.6); Glomerular Filtration Rate 163.9 mL/min (90-130); Glucose 110 mg/dL (65-115); Osmolality Calculated 291 mOsm/kg (285-295); Sodium 139 mmol/L (136-145); Total Bilirubin 0.8 mg/dL (0.15-1.2); Total Protein 5.9 g/dL (6.6-8.7)
[2020-04-04 05:07] LABS: Potassium 2.4 mmol/L (3.5-5.1)
--- NOTE | 2020-04-04 05:13 | NUR.SHIFT ---
Potassium Call received at 0507 of Critical potassium level of 2.4, Dr. Lee notified and telephone order verify read back new orders of 80 meq of Potassium (k-rider) one time IV.
[2020-04-04] MEDS: lidocaine 1% 5 ML in potassium chloride premix 100 ML 25 ML IV (05:18)
[2020-04-04] MEDS: nicotine 21 mg Patch 1 PATCH TRANSDERMA ×2 (08:22→08:28)
[2020-04-04] MEDS: amlodipine 10 mg Tablet PO (08:23)
[2020-04-04] MEDS: cloNIDine 0.1 mg Tablet PO ×3 (08:23→20:40)
[2020-04-04] MEDS: hyDROXYzine 25 mg Capsule PO ×2 (08:23→23:20)
--- NOTE | 2020-04-04 12:48 | PM.PN ---
Subjective Subjective: Interval history: 59-year-old female with a past medical history significant for gastroesophageal reflux disease, hypertension, and chronic obstructive pulmonary disease presented to the hospital with respiratory distress. initial laboratory workup on arrival showed a WBC of 7.1, hemoglobin at 10.6, hematocrit of 34.2 and a platelet count of 413. sodium 143, potassium 4.0, chloride 106, bicarb 23, BUN 24, creatinine of 0.6 and a glucose of 128. AST of 189, ALT of 85. TSH of 0.20. Arterial blood gases showed a pH of 7.30, pCO2 of 48.9, PO2 of 62. CT head did not show any acute abnormalities. Chest x-ray showed patchy opacities in right lower lobe consistent with pneumonia. COVID19 PCR was negative. Patient was started on Cefepime, azithromycin, Solu-medrol, DuoNebs and placed on BiPAP. She did not tolerate Bipap due to altered mental status. She was intubated and placed on mechanical ventilation. CTA Chest PE protocol was then performed which showed diffuse of the opacity and peripheral consolidation in the right middle lobe in keeping with pneumonia. There is also ground-glass and alveolar opacity in the upper lobes abutting the fissures and posteriorly at the lung bases more on the right than on the left also some peripheral consolidation the right lower lobe in keeping with pneumonia. No evidence of PE. Antibiotics were then changed to vancomycin pharmacy to dose, Imipenam and azithromycin. She was intermittently extubated however overnight on 03/27 due to continued combative behavior and mental status change she was re-intubated and placed on propofol, versed, fentanyl and precedex for sedation. Etiology of patient mental status change was unclear. Suspected to possibly be due to infection vs withdrawal from opiods. She as then started on methadone 30 mg PO BID. Patient was extubated on 04/02. in pm to [place]. She was continued on precedex gtt due to ongoing agitation. 04/03/20 Overnight patient remained very confused and agitated. Pulled out mccollum. Continue to require precedex gtt with PRN ativan and haldol. 04/04/20 Patient was weaned off precedex, respiratory status remained stable overnight post extubation. More alert today however remains confused. Off restraints. No fever or chills. No nausea or vomiting. Medications: Reviewed: Yes Vitals/I&O/Wt Last Vital Signs Temp 98.0 F 04/04/20 00:00 Pulse 113 H 04/04/20 06:00 Resp 19 H 04/04/20 06:00 BP 161/83 04/04/20 06:00 Pulse Ox 97 04/04/20 00:00 04/03/20 04/04/20 04/04/20 22:59 06:59 14:59 Intake Total 540.328 / 1026.863 352.659 / 1379.522 Output Total 300 / 600 375 / 975 Balance 240.328 / 426.863 -22.341 / 404.522 Weight last 48 hrs Weight 80.9 kg Weight 79.742 kg Physical Exam Narrative: EXAM NARRATIVE: Chronically ill appearing HEENT: On NC, Grossly unremarkable Chest : decrease BS at B/L Bases R>L CVS: Regular rate and rythym Abd: Soft, NT Ext: No edema Neuro. A&O x 1(self) , Does not follow command, moving all extremities. Urinary Catheter Management^: Mccollum: Cath Placed During This Visit: yes Reason for Continuing Indwelling Catheter: Accurate Measurement of Urinary Output in Critically Ill Patients Urinary Catheter Date of Insertion: 03/27/20 Urinary Catheter Time of Insertion: 22:30 Data : 04/04/20 04:11 04/04/20 04:11 A&P Assessment and plan (1) Acute encephalopathy: Status: Acute (2) Pneumonia: Status: Acute (3) COPD exacerbation: Status: Acute (4) Respiratory failure: Status: Acute (5) Sepsis: Status: Acute Acute hypoxemic/hypercapnic respiratory failure s/p MV - Etiology multifactorial - Pneumonia vs undiagnosed underlying COPD - S/p Extubation on 04/02 - On supplemental o2 - wean as tolerated - 04/03 - ABG- Ph 7.53, Pco2 34.2, Po2 of 69.8, HCO3 28.3 on 4L via NC - Chest -xray today - > Right basal infiltrative and atelectasis - almost resolved. - Continue Duoneb - Steroids were discontinued due to encephalopathy - No change to management Right lower lobe consolidative pneumonia - Cefepime, Azithromycin on admission to 03/27- - Vancomycin,Azithromycin 03/28, Primixin added on 03/31 - Will transition to levaquin 750 mg PO for additional 3 -5 days - Chest x-ray showed resolution of RLL infiltrates - Sputum culture - Strep agalactiae. - Blood culture x 2 - NGTD - Urine culture - negative Acute Encephalopathy - Improving - Multi-factorial, Infection vs opiod withdrawal vs ICU delirum - Will limit use of benzodiazapine - Stop methadone - Haldol PRN - May consider adding seroquel in PM - Off precedex - Head CT on admission - No acute IC abnormality - Slowly improving. Will require site safety manager. Hypertension - Increase norvasc to 10 mg PO dialy - Clonidine 0.1 mg PO TID - No longer bradycardic - Will continue to titrate antihypertensives Will transfer to [facility] with patient sitter today. PT/OT consult DVT ppx - Lovenox 40 mg SQ daily Additional A&P Information Code Status :Full Code DVT PPX: On lovenox 40 mg sc daily Disposition :Home once stable Attestations Medical Necessity Statement*: Will require further hospitalization for management of sepsis and altered mental status. Coding Level of Care Code Acute Independent Living Instructor for [facility] Justyna Diagnoses Acute encephalopathy G93.40 Pneumonia J18.9 COPD exacerbation J44.1 Respiratory failure J96.90 Sepsis A41.9
[2020-04-04] MEDS: enoxaparin 40 mg/0.4 mL Syringe SUBCUT (15:05)
[2020-04-04] MEDS: levoFLOXacin 750 mg Tablet PO (15:05)
[2020-04-04] MEDS: OLANZapine 10 mg VIAL IM ×2 (19:58→20:10)
[2020-04-04] MEDS: HYDROmorphone 1 mg/mL INJ 1 mL 2 MG IVP (22:20)
--- NOTE | 2020-04-04 22:30 | PC.NURSE ---
UPDATE Pt continues to be excessively confused. Dr Lee contacted at start of shift for 1 time dose of Zyprexa (see MAR). Pt c/o pain. Home meds and state pt does not take pain medicine; however, pt continues to state she takes oxy and tramadol at home. notified of pain and orders rcd (see MAR). Sitter at bedside. Pt crawled out of bed and was found on her knees on the floor. Trey RN and ЕЛЕНА Bedoya assisted nurse in helping pt back to bed. notified. One time order given for dilaudid (see MAR).
[2020-04-05] VITALS (50 sets, daily range): BP systolic 86–136; BP diastolic 40–91; PULSE 82–169; RESP 15–34; TEMP 36.6; O2SAT 88–95
--- NOTE | 2020-04-05 00:14 | PC.NURSE ---
Pt c/o needing to pee . Pt placed on bedpan. Pt got up onto bedside commode. Pt unable to pee. Bladder scan showed [address] consulted and mccollum placed.
[2020-04-05] MEDS: midazolam 1 mg/mL INJ 2 mL IVP ×2 (01:23→21:09)
[2020-04-05] MEDS: diphenhydrAMINE 50 mg/mL SDV 1mL 25 MG IVP ×2 (03:27→21:09)
[2020-04-05] MEDS: LORazepam 2 mg/mL INJ 1 mL 1 MG IVP (03:27)
[2020-04-05] MEDS: levoFLOXacin 750 mg Tablet PO (05:01)
[2020-04-05] MEDS: haloperidol inj 5 mg/mL INJ 1 mL IM ×2 (05:01→21:08)
--- NOTE | 2020-04-05 05:07 | PC.NURSE ---
Pt continues to be confused, hallucinating, pulling on lines, and refusing to let her BP be taken
[2020-04-05 05:51] LABS: Basophils % 0.2 %; Eosinophils # 0.2 10^3/uL (0.0-0.8); Eosinophils % 1.9 %; Hematocrit 39.3 % (37.0-47.0); Hemoglobin 12.6 g/dL (11.5-15.3); Lymphocytes % 24.5 %; Mean Corpuscular HGB Conc 32.1 g/dL (30.0-36.0); Mean Corpuscular Hemoglobin 27.6 pg (28.0-34.0); Mean Corpuscular Volume 86.2 fL (81-99); Mean Platelet Volume 9.7 fL (7.4-10.4); Monocytes # 0.9 10^3/uL (0.2-0.9); Monocytes % 7.4 %; Neutrophils # 8.07 10^3/uL (1.8-7.7); Neutrophils % 65.6 %; Nucleated Red Blood Cells % 0 %; Platelet Count 400 10^3/cmm (130-400); Red Blood Count 4.56 10^6/uL (4.1-5.3); Red Cell Distribution Width 14.4 % (12.1-15.1); White Blood Count 12.3 10^3/uL (4.0-10.0)
[2020-04-05 06:18] LABS: Alanine Aminotransferase 49 U/L (0-33); Albumin Level 3.4 g/dL (3.5-5.2); Alkaline Phosphatase 73 IU/L (35-105); Anion Gap 16.2 (5-19); Aspartate Amino Transferase 63 U/L (0-32); Blood Urea Nitrogen 15 mg/dL (6-20); Calcium 8.7 mg/dL (8.5-10.5); Carbon Dioxide 24 mmol/L (22-29); Chloride 107 mmol/L (98-107); Globulin 2.2 g/dL (1.3-4.6); Glomerular Filtration Rate 126.7 mL/min (90-130); Glucose 110 mg/dL (65-115); Osmolality Calculated 301 mOsm/kg (285-295); Sodium 145 mmol/L (136-145); Total Bilirubin 0.8 mg/dL (0.15-1.2); Total Protein 5.6 g/dL (6.6-8.7)
[2020-04-05 06:39] LABS: Potassium 2.2 mmol/L (3.5-5.1)
[2020-04-05] MEDS: cloNIDine 0.1 mg Tablet PO ×3 (09:12→20:01)
[2020-04-05] MEDS: amlodipine 10 mg Tablet PO (09:12)
[2020-04-05] MEDS: potassium chloride oral liq 20 mEq/15 mL UDC 40 MEQ PO ×3 (09:12→16:45)
[2020-04-05] MEDS: nicotine 21 mg Patch 1 PATCH TRANSDERMA (09:12)
[2020-04-05] MEDS: hyDROXYzine 25 mg Capsule PO ×2 (09:12→20:01)
[2020-04-05] MEDS: quetiapine 25 mg Tablet PO (11:33)
--- NOTE | 2020-04-05 11:37 | PC.NURSE ---
continues to be severely agitated and confused kicking feet out of bed not able to follow commands adequate Dr here with orders
[2020-04-05] MEDS: quetiapine 100 mg Tablet PO (12:29)
--- NOTE | 2020-04-05 14:44 | PM.PN ---
Subjective Subjective: Interval history: 59-year-old female with a past medical history significant for gastroesophageal reflux disease, hypertension, and chronic obstructive pulmonary disease presented to the hospital with respiratory distress. initial laboratory workup on arrival showed a WBC of 7.1, hemoglobin at 10.6, hematocrit of 34.2 and a platelet count of 413. sodium 143, potassium 4.0, chloride 106, bicarb 23, BUN 24, creatinine of 0.6 and a glucose of 128. AST of 189, ALT of 85. TSH of 0.20. Arterial blood gases showed a pH of 7.30, pCO2 of 48.9, PO2 of 62. CT head did not show any acute abnormalities. Chest x-ray showed patchy opacities in right lower lobe consistent with pneumonia. COVID19 PCR was negative. Patient was started on Cefepime, azithromycin, Solu-medrol, DuoNebs and placed on BiPAP. She did not tolerate Bipap due to altered mental status. She was intubated and placed on mechanical ventilation. CTA Chest PE protocol was then performed which showed diffuse of the opacity and peripheral consolidation in the right middle lobe in keeping with pneumonia. There is also ground-glass and alveolar opacity in the upper lobes abutting the fissures and posteriorly at the lung bases more on the right than on the left also some peripheral consolidation the right lower lobe in keeping with pneumonia. No evidence of PE. Antibiotics were then changed to vancomycin pharmacy to dose, Imipenam and azithromycin. She was intermittently extubated however overnight on 03/27 due to continued combative behavior and mental status change she was re-intubated and placed on propofol, versed, fentanyl and precedex for sedation. Etiology of patient mental status change was unclear. Suspected to possibly be due to infection vs withdrawal from opiods. She as then started on methadone 30 mg PO BID. Patient was extubated on 04/02. in pm to [place]. She was continued on precedex gtt due to ongoing agitation. 04/03/20 Overnight patient remained very confused and agitated. Pulled out mccollum. Continue to require precedex gtt with PRN ativan and haldol. 04/04/20 Patient was weaned off precedex, respiratory status remained stable overnight post extubation. More alert today however remains confused. Off restraints. No fever or chills. No nausea or vomiting. 04/05/20 Patient was noted to have urinary retention overnight requiring mccollum. Also noted to be severely agitated. Was given versed, zyprexa, haldol without any notable improvement. No fever, chills, nausea or vomiting. Remained off oxygen. Medications: Reviewed: Yes Vitals/I&O/Wt Last Vital Signs Temp 98 F 04/05/20 08:00 Pulse 110 H 04/05/20 13:00 Resp 20 H 04/05/20 13:00 BP 120/67 04/05/20 13:00 Pulse Ox 90 04/05/20 08:00 04/04/20 04/05/20 04/05/20 22:59 06:59 14:59 Intake Total 785 / 1585 200 / 1785 300 / 300 Output Total 500 / 700 200 / 900 Balance 285 / 885 0 / 885 300 / 300 Weight last 48 hrs Weight 80.9 kg Physical Exam Narrative: EXAM NARRATIVE: Chronically ill appearing, agitated, confused. HEENT: On NC, Grossly unremarkable Chest : decrease BS at B/L Bases R>L CVS: Tachycardic Abd: Soft, NT Ext: No edema Neuro. A&O x 0 Does not follow command, moving all extremities. Urinary Catheter Management^: Mccollum: Cath Placed During This Visit: yes, but has since been removed by the nurse Reason for Continuing Indwelling Catheter: Accurate Measurement of Urinary Output in Critically Ill Patients Urinary Catheter Date of Insertion: 04/05/20 Urinary Catheter Time of Insertion: 22:30 Date Urinary Catheter Removed: 04/03/20 Time Urinary Catheter Discontinued: 16:00 Data : 04/05/20 04:54 04/05/20 04:54 A&P Assessment and plan (1) Acute encephalopathy: Status: Acute (2) Pneumonia: Status: Acute (3) COPD exacerbation: Status: Acute (4) Respiratory failure: Status: Acute (5) Sepsis: Status: Acute Acute hypoxemic/hypercapnic respiratory failure s/p MV - Etiology multifactorial - Pneumonia vs undiagnosed underlying COPD - S/p Extubation on 04/02 - On supplemental o2 - wean as tolerated - 04/03 - ABG- Ph 7.53, Pco2 34.2, Po2 of 69.8, HCO3 28.3 on 4L via NC - Chest -xray 04/03 - > Right basal infiltrative and atelectasis - almost resolved. - Continue Duoneb - Steroids were discontinued due to encephalopathy - Currenlty on RA, Will obtain ABG Right lower lobe consolidative pneumonia - Cefepime, Azithromycin on admission to 03/27- - Vancomycin,Azithromycin 03/28, Primixin added on 03/31 - Antibiotics transitioned to levaquin 750 daily - Chest x-ray showed resolution of RLL infiltrates - Sputum culture - Strep agalactiae. - Blood culture x 2 - NGTD - Urine culture - negative Acute Encephalopathy - Multi-factorial, Infection vs opiod withdrawal vs ICU delirum - Will limit use of benzodiazapine - Stop methadone - Haldol PRN - Psych consulted - Seroquel 100 mg PO x 1 given - Head CT on admission - No acute IC abnormality - Will require environmental health and safety manager. Urianry retention - S/p mccollum insertion - Traumatic hematuria pulling due to agitation - If persists will need soft restraints - Monitor h/h Hypertension - Norvasc to 10 mg PO dialy - Clonidine 0.1 mg PO TID - No longer bradycardic - Will continue to titrate antihypertensives Ok to transfer to [facility] with patient sitter pending bed avaiability. No furhter ICU needs PT/OT consult DVT ppx - Lovenox 40 mg SQ daily Additional A&P Information Code Status :Full Code DVT PPX: On lovenox 40 mg sc daily ( HOLD due to hematuria ) Disposition :Home once stable vs SNF Attestations Medical Necessity Statement*: Will require further hospitalization for management of AMS, Urinary retension, hematuria . Time Spent in Patient Care: Greater than 35 minutes (>than 50% of time spent in counselling and/or direct pt care on unit). Coding Level of Care Code Acute Russian History Professor for [facility] Fwd Diagnoses Acute encephalopathy G93.40 Pneumonia J18.9 COPD exacerbation J44.1 Respiratory failure J96.90 Sepsis A41.9
[2020-04-05 15:35] LABS: ABG PCO2 30.2 mmHg (35-45); ABG PH Result 7.51 (7.35-7.45); Alveolar-Arterial Oxygen Gradi 7.7 mmHg (5-10); Arterial Blood Gas Hematocrit 40.6 % (37-47); Blood Gas Allen Test Pos; Blood Gas Operator Identificat BD; Blood Gas Sample Site Radial, right; Blood Gas Sample Type Arterial; HCO3 ABG 24.2 mmol/L (22-26); HGB O2 Sat 87.1 % (95-100); Ionized Calcium Level - ABG 1.2 mmol/L (1.1-1.4); Methemoglobin 0.8 % (0.4-1.5); Oxygen Device ROOM AIR; Oxygen Saturation ABG 87.8; PO2 ABG 53.9 mmHg (80.0-100.0); Potassium Level - ABG 2.7 mmol/L (3.5-5.0); Total Hemoglobin 13.2 g/dL (12-16)
[2020-04-05] MEDS: metoprolol tartrate 1 mg/1 mL SDV 5 mL 2.5 MG IV (17:08)
[2020-04-05] MEDS: sodium chloride 0.9% 500 ML 999 ML IV (17:09)
--- NOTE | 2020-04-05 17:39 | PC.NURSE ---
heart rate elevated up to 160 and 170 a fib called with orders
--- NOTE | 2020-04-05 23:49 | PC.NURSE ---
AGITATION Patient appearing agitated and hallucinating. Patient grabbing at air yelling for Roger and her mother. Patient was redirected that she was in the hospital and patient responded with agitation and states that I am not in the hospital and I don't believe you guys. Patient states shut up when trying to get out of bed and nurse and 1:1 sitter redirect patient that it is night time and to try and get some rest. Physician called and gave order for 1 mg versed IVP. Benadryl also given to patient for itching. Patient appeared more relaxed and went to asleep for about 2 hours.
--- NOTE | 2020-04-05 23:54 | PC.NURSE ---
OXYGEN After versed, benadryl and haldol given, patient went to sleep. Patients oxygen decreased to 88%. 2L oxygen placed on patient via nasal cannula. Patient left it on for a short time and increased to 92%. Patient took oxygen off and currently on RA at 94%.
[2020-04-06] VITALS (77 sets, daily range): BP systolic 88–126; BP diastolic 40–72; PULSE 70–115; RESP 13–35; TEMP 36.4–37.2; O2SAT 87–100
[2020-04-06] MEDS: midazolam 1 mg/mL INJ 2 mL IVP ×2 (01:17→05:41)
[2020-04-06] MEDS: diphenhydrAMINE 50 mg/mL SDV 1mL 25 MG IVP ×2 (01:18→05:41)
--- NOTE | 2020-04-06 01:39 | PC.NURSE ---
AGGRESSION Patient beginning to get agitated and minimally aggressive with her hands. Patient verbally redirected and continued to become agitated. Dr. Lee notified and gave an order for another one time dose of versed 1 mg IVP.
[2020-04-06] MEDS: haloperidol inj 5 mg/mL INJ 1 mL IM (03:06)
[2020-04-06 04:15] LABS: Ammonia 50 umol/L (11-51)
[2020-04-06 04:57] LABS: Alanine Aminotransferase 35 U/L (0-33); Albumin Level 3.3 g/dL (3.5-5.2); Alkaline Phosphatase 73 IU/L (35-105); Aspartate Amino Transferase 35 U/L (0-32); Blood Urea Nitrogen 12 mg/dL (6-20); Calcium 8.4 mg/dL (8.5-10.5); Carbon Dioxide 24 mmol/L (22-29); Chloride 107 mmol/L (98-107); Globulin 1.7 g/dL (1.3-4.6); Glomerular Filtration Rate 228.5 mL/min (90-130); Glucose 118 mg/dL (65-115); Osmolality Calculated 297 mOsm/kg (285-295); Sodium 143 mmol/L (136-145); Total Bilirubin 0.7 mg/dL (0.15-1.2)
[2020-04-06 05:25] LABS: Anion Gap 15.2 (5-19); Potassium 3.2 mmol/L (3.5-5.1)
[2020-04-06] MEDS: levoFLOXacin 750 mg Tablet PO (05:40)
--- NOTE | 2020-04-06 06:09 | PC.NURSE ---
POTASSIUM Patient's potassium 3.[address] Lee notified. No new orders at this time.
--- NOTE | 2020-04-06 06:10 | PC.NURSE ---
BEHAVIOR Patient appeared agitated and anxious once again. Patient has rested well tonight between versed doses. Dr. Eller notified and gave additional one time order for versed 1 mg IVP, given at 0541. IM haldol also given around 0300. Patient appears more content and is drinking coffee at this time.
[2020-04-06 06:16] LABS: Basophils % 0.2 %; Eosinophils # 0.2 10^3/uL (0.0-0.8); Eosinophils % 1.9 %; Hematocrit 37.5 % (37.0-47.0); Lymphocytes # 2.3 10^3/uL (0.8-4.8); Lymphocytes % 21.1 %; Mean Corpuscular Hemoglobin 28.2 pg (28.0-34.0); Mean Platelet Volume 10.7 fL (7.4-10.4); Monocytes # 0.9 10^3/uL (0.2-0.9); Monocytes % 8.6 %; Neutrophils # 7.21 10^3/uL (1.8-7.7); Neutrophils % 67.8 %; Nucleated Red Blood Cells % 0 %; Platelet Count 299 10^3/cmm (130-400); Red Blood Count 4.26 10^6/uL (4.1-5.3); Red Cell Distribution Width 14.9 % (12.1-15.1); White Blood Count 10.6 10^3/uL (4.0-10.0)
--- NOTE | 2020-04-06 06:30 | PC.NURSE ---
NEURO Patient states this morning that she is in [place] and was requesting coffee with vanilla creamer. Patient taken coffee and sitting up right now drinking it. Patient also states that she would like to walk and get a bath today and says she would also like her phone. Patient does not appear to be having anymore hallucinations and is more oriented this morning.
--- NOTE | 2020-04-06 09:19 | P.PN_ITS ---
Subjective Subjective: Interval history: Chart reviewed, low normal BP otherwise hemodynamically stable, afebrile, on RA, replace K. Had 450 mL urine output overnight. Decreasing leukocytosis, improving transaminitis. Sitter remains at bedside. Resting comfortably in bed, alert and oriented x3, no complaints currently. Quite weak and unable to ambulate very well with physical therapy this morning. Still has some tremors in her hands. Medications: Reviewed: Yes Medication Review Details: Active Medications Generic Name Dose Route Start Last Admin Trade Name Freq PRN Reason Stop Dose Admin Acetaminophen 650 mg 03/27/20 19:15 Acetaminophen 32 5 Mg Tablet PO Q6H PRN Mild/Mod Pain Or Temp >/= 101 Albuterol/Ipratrop ium 3 ml 03/27/20 15:00 04/06/20 03:50 Ipratropium-Albu terol 3 Ml Neb INHALATION Not Given Q6H.RESPIRATORY S CH Amlodipine Besylat e 10 mg 04/04/20 09:00 04/06/20 09:19 Amlodipine 10 Mg Tablet PO Not Given DAILY MAURICIO Bisacodyl 10 mg 03/27/20 19:15 Bisacodyl 5 Mg T ablet PO DAILY PRN CONSTIPATION Clonidine HCl 0.1 mg 03/31/20 06:00 04/06/20 09:18 Clonidine 0.1 Mg Tablet PO Not Given TID MAURICIO Diphenhydramine HC l 25 mg 03/30/20 18:15 04/06/20 05:41 Diphenhydramine 50 Mg/Ml Sdv 1ml IVP 25 mg Q4H PRN Administration ITCHING Enoxaparin Sodium 40 mg 03/28/20 16:00 04/04/20 15:05 Enoxaparin 40 Mg /0.4 Ml Syringe SUBCUT 40 mg Q24H MAURICIO Administration Haloperidol Lactat e 5 mg 03/30/20 18:14 04/06/20 03:06 Haloperidol Inj 5 Mg/Ml Inj 1 Ml IM 5 mg Q6H PRN Administration AGITATION Hydroxyzine Pamoat e 25 mg 04/03/20 19:47 04/05/20 20:01 Hydroxyzine 25 M g Capsule PO 25 mg TID PRN Administration ANXIETY Dexmedetomidine HC l 400 mcg/ 104 mls @ 0 mls/h r 03/30/20 21:30 04/04/20 02:07 Sodium Chloride IV 0 mcg/kg/hr .Q0M MAURICIO 0 mls/hr Titration Protocol Per Protocol Labetalol HCl 10 mg 03/30/20 14:03 04/02/20 19:06 Labetalol 5 Mg/M l Sdv 20ml IVP 10 mg PRN PRN Administration SBP > 150 Levofloxacin 750 mg 04/04/20 13:20 04/06/20 05:40 Levofloxacin 750 Mg Tablet PO 04/07/20 09:00 750 mg DAILY@0600 MAURICIO Administration Protocol Naloxone HCl 0.1 mg 03/27/20 19:15 Naloxone 0.4 Mg/ Ml Sdv IVP Q2M PRN OPIATERV Nicotine 1 patch 04/03/20 19:48 04/05/20 09:12 Nicotine 21 Mg P atch TRANSDERMA 1 patch DAILY MAURICIO Administration Nitroglycerin 0.5 inch 04/03/20 02:15 04/03/20 02:21 Nitroglycerin 1 Gm/Inch Oint Pkt TOPICAL 0.5 inch ONCE MAURICIO Administration Ondansetron HCl 4 mg 03/27/20 19:15 Ondansetron 2 Mg /Ml Sdv 2 Ml IVP Q8H PRN vomiting, or N/V if npo Potassium Chloride 40 meq 04/06/20 09:23 Potassium Chlori de Er 10 Meq Table t PO 04/06/20 09:24 ONCE ONE baclofen Allergy (Verified 03/27/20 12:46) ADR-Itching cephalexin [From Keflex] Allergy (Verified 03/31/20 09:22) Unknown Vitals/I&O/Wt Last Vital Signs Temp 98.7 F 04/06/20 08:15 Pulse 89 04/06/20 08:15 Resp 26 H 04/06/20 08:15 BP 100/65 04/06/20 08:15 Pulse Ox 96 04/06/20 08:15 04/05/20 04/06/20 04/06/20 22:59 06:59 14:59 Intake Total 470 / 770 Output Total 800 / 800 450 / 1250 Balance -330 / -30 -450 / -480 Weight last 48 hrs Weight 81.284 kg Physical Exam Const: COMMON NORMALS: no acute distress, patient oriented x3 and alert GENERAL APPEARANCE: cooperative, comfortable and disheveled NUTRITIONAL APPEARANCE: overweight ORIENTATION/CONSCIOUSNESS: Yes awake HENMT: COMMON NORMALS: normocephalic, atraumatic and hearing grossly normal bilaterally HEAD & SCALP: normocephalic and atraumatic MOUTH: moist mucous membranes abnormal Details: parched Eye: COMMON NORMALS: Equal, round and reactive pupils present, EOMs intact bilaterally and conjunctivae normal CONJUNCTIVA: Yes conjunctivae normal PUPIL: Yes Equal, round and reactive pupils present Neck/C-Spine: COMMON NORMALS: full ROM GENERAL: Yes normal visual inspection and Yes trachea midline Resp: COMMON NORMALS: normal respiratory effort, No retractions, No use of accessory muscles and clear to auscultation bilaterally EFFORT & INSPECTION: Yes able to speak in complete sentences, Yes symmetric chest movement and No tachypneic AUSCULTATION: clear to auscultation bilaterally OTHER: -on RA Cardio: COMMON NORMALS: regular rate, regular rhythm, S1 normal heart sound present, S2 normal heart sound present and No murmurs present (Cardio) RATE: regular rate RHYTHM: regular rhythm HEART SOUNDS: S1 normal heart sound present and S2 normal heart sound present GI: COMMON NORMALS: Normal to inspection, nondistended, normoactive bowel sounds present, Soft to palpation and non-tender INSPECTION: Yes central obesity PALPATION: Yes Soft to palpation Extremity: COMMON NORMALS: normal to inspection, full ROM and no clubbing, cyanosis or edema; negative for no pedal edema Neuro: COMMON NORMALS: patient oriented x3, moves all extremities, no focal motor deficits and no sensory deficits noted SENSORIUM/ORIENTATION: Yes alert OTHER: -mild bilateral hand tremors -quite weak Psych: COMMON NORMALS: mental status grossly normal, Normal thought process present, cooperative, normal affect and speech normal SPEECH: Yes normal speech THOUGHT PROCESS: Normal thought process present Skin: COMMON NORMALS: no rashes or lesions noted, no jaundice, no petechiae and no mottling GENERAL SKIN EXAM: no rashes or lesions noted Urinary Catheter Management^: Ryder: Cath Placed During This Visit: yes, but has since been removed by the nurse Reason for Continuing Indwelling Catheter: Accurate Measurement of Urinary Output in Critically Ill Patients Urinary Catheter Date of Insertion: 04/05/20 Urinary Catheter Time of Insertion: 22:30 Date Urinary Catheter Removed: 04/03/20 Time Urinary Catheter Discontinued: 16:00 Data : 04/06/20 03:19 04/06/20 03:19 A&P Assessment and plan (1) Acute encephalopathy: -unclear etiology but thought to be related to acute infection at least to some degree -CT head negative -requiring sitter -appreciate psychiatry evaluation -off precedex, seroquel, methadone -re-orient as needed -fall, aspiration precautions Status: Acute (2) Transaminitis: -improving Status: Acute (3) Hypertension: -low to low normal BP this AM, antihypertensives on hold -continue to monitor vital signs Status: Chronic Qualifiers: Hypertension type: essential hypertension Qualified Code(s): I10 - Essential (primary) hypertension (4) Pneumonia: -improving per imaging -on RA, continue to monitor respiratory status -on oral antibiotics (Levaquin) -did require vent support, extubated for the second time on 04/02 -blood cx: negative -sputum cx: strep agalactiae -CTA negative for PE -rapid COVID-19 testing negative Status: Acute Qualifiers: Laterality: right Lung location: lower lobe of lung Pneumonia type: due to unspecified organism Qualified Code(s): J18.9 - Pneumonia, unspecified organism Additional A&P Information -Morbid obesity: BMI-33 kg/m2 -Urinary retention; Ryder catheter replaced -Bradycardia resolved -COPD exacerbation resolved; not oxygen dependent at baseline -DVT ppx with lovenox -low salt diet as tolerated -Dispo: [facility] -Code status: FULL code -transfer from ICU once bed available Attestations 2 Medical Necessity Statement*: Patient requires hospitalization for continued management of acute encephalopathy, continued treatment of pneumonia, pending appropriate disposition. Time Spent in Patient Care: 16 - 35 minutes (>than 50% of time spent in counselling and/or direct pt care on unit) . Coding Level of Care Code Acute Military Administrative Technician for [facility] Fwd Exam Comprehensive Diagnoses Acute encephalopathy G93.40 Transaminitis R74.01 Hypertension I10 Hypertension type: essential hypertension Pneumonia J18.9 Laterality: right Lung location: lower lobe of lung Pneumonia type: due to unspecified organism
--- NOTE | 2020-04-06 09:19 | PC.NURSE ---
Morning medications held Nurse did not administer morning norvasc 10mg PO and clonidine 0.1mg PO due to patient blood pressure. current blood pressure is 96/53. all vitals signs WNL. patient alert X2. patient was able to most of her breakfast by herself, nurse noted slight shaking of hands while eating. mccollum intact and draining. patient currently sating 94% on RA. 1:1 sitter at bedside for patient safety. will continue to monitor.
--- NOTE | 2020-04-06 09:22 | PC.CHAP ---
Pastoral Care Encounter/Spiritual Assessment Type of Contact [] Declined writing manager visit [] Patient/Family/Request visit [] Outpatient visit [] Follow-up visit [] Physician referral [] Code/Alert [] Routine visit [] Staff referral [] Actively dying [] Patient sleeping [] Family support [] [] Out of room [] Palliative care [] [] Receiving care in room [] Pre-surgical visit [] Trauma [] Long length of stay [] ICU visit [] Other: Relational/Emotional Strength [] Patient feels connected with others/family/visitors/staff [] Distress [] Loneliness/isolation [] Abandonment Spirituality of Patient [] Person of Clarisa [] Attends Restorationist of their Clarisa [] Believes in Prayer [] Reads Bible or Amish materials [] There are Spiritual issues to be addressed Appeals Reviewer Veteran Interventions [x] Prayer [] Active listening [] Non-anxious presence [] Spiritual/emotional support [] Crisis/trauma care [] Spiritual counseling [] Bereavement support [] Provided bereavement packet [] Provided Bible/devotional materials [] Provided toy/stuffed animal, coloring book to patient or family member [] Provided Communion [] Anointing/[place] [] Salvation [x] Completed spiritual assessment [] Other: Impact on Illness or Injury [] Angry [] Fearful [] Anxious [] Often cries [] Exhaustion [] Unable to work [] Unable to attend congregation [] Unable to walk/stand [] Unable to read [] Unable to drive [] Unable to eat/drink [] Unable to sleep [] Unable to be with family [] Patient intubated [] Other: Summary Time spent with patient
[2020-04-06] MEDS: potassium chloride ER 20 mEq Tablet 40 MEQ PO (09:39)
--- NOTE | 2020-04-06 16:25 | PC.NURSE ---
up to bathroom patient up to bathroom X2 with nurse. patient able to scoot self off bed, stand up herself. patient is a little shaky on feet. patient tolerated well.
--- NOTE | 2020-04-06 17:17 | PC.NURSE ---
report called This nurse call report to ЕЛЕНА Payne on [facility]. all questions answered.
[2020-04-06] MEDS: ipratropium-albuterol 3 mL Neb INHALATION (20:01)
[2020-04-07] VITALS (8 sets, daily range): BP systolic 97–125; BP diastolic 61–70; PULSE 70–99; RESP 18; TEMP 36.8–37.2; O2SAT 93–96
[2020-04-07] MEDS: levoFLOXacin 750 mg Tablet PO (06:11)
[2020-04-07] MEDS: hyDROXYzine 25 mg Capsule PO ×2 (08:23→13:23)
[2020-04-07] MEDS: nicotine 21 mg Patch 1 PATCH TRANSDERMA (08:23)
[2020-04-07] MEDS: ipratropium-albuterol 3 mL Neb INHALATION (09:54)
--- NOTE | 2020-04-07 11:58 | P.DS_ITS ---
Discharge Providers Date of Admission: 03/27/20 13:49 Date of Discharge: April 07, 2020 Attending Provider at Admission: Nacho Hills MD Attending Provider at Discharge: Hodan Espinoza MD Consults: Psychiatry, Dr. Hollis Primary Care Provider: Dr. Kenya Jasmine Diagnoses at Discharge Discharge Diagnosis (1) Acute encephalopathy: Status: Resolved Permanent problem details: -mental status has returned to baseline -off 1:1 monitoring and has been appropriate (2) Transaminitis: Status: Acute Permanent problem details: -improved (3) Hypertension: Status: Chronic Permanent problem details: -continue home antihypertensives Qualifiers: Hypertension type: essential hypertension Qualified Code(s): I10 - Essential (primary) hypertension (4) Pneumonia: Status: Acute Permanent problem details: -antibiotic treatment course completed Qualifiers: Pneumonia type: due to unspecified organism Laterality: right Lung location: lower lobe of lung Qualified Code(s): J18.9 - Pneumonia, unspecified organism Other Information Additional DC diagnoses/information: -Morbid obesity: BMI-32 kg/m2 -Urinary retention; Ryder catheter replaced -Bradycardia resolved -COPD exacerbation resolved; not oxygen dependent at baseline Reason for Visit Reason for Visit: stroke like symptoms Hospital Course Hospital Course Patient was initially admitted to the medical surgical floor and started on broad-spectrum IV antibiotics secondary to acute hypercapnic and hypoxic respiratory failure secondary to pneumonia. She also required steroids and pulmonary toilet due to acute COPD exacerbation. Unfortunately, overnight her respiratory status decompensated and she required intubation at which point she was moved to the ICU for more aggressive care. She did require some pressor support due to noted hypotension and seemed to respond to IV fluid hydration as well. With continued need for ventilator support and sepsis, IV antibiotic spectrum was broadened to include vancomycin, and imipenem. Her mental status seems to be quite altered with suspicion for possible opiate withdrawal in addition to sedation required for mechanical ventilation. She did require Precedex and additional sedation; methadone was given to suspicion for opiate withdrawal. Patient was eventually successfully extubated though she did require re-intubation due to noted combative behavior and altered mental status. She was eventually extubated for the second time on 04/02 with noted continued agitation for which Precedex drip was continued. Once she was off the ventilator, she had a one-on-one sitter for safety. Psychiatry was consulted and recommended addition of Seroquel at which point methadone was discontinued to decrease risk of somnolence. However with continued agitation Seroquel was also discontinued and interestingly patient began to consistently improve. She was noted to have some intermittent bradycardia that resolved, with resumption of oral antihypertensives blood pressure has been much better controlled. With continued overall clinical improvement she was transitioned to oral antibiotics and has since completed her treatment course. Sepsis has since resolved with stability in her hemodynamic status, respiratory status with no further need for supplemental oxygen, improvement in her mental status and eventually we were able to discontinue one-on-one monitoring. She has participated well with physical therapy and seems to have adequate support at home, home health services have been requested. She will need appropriate follow-up with a primary care provider and will be referred to behavioral health care for further evaluation. She is counseled on need to seek medical attention immediately should any of her symptoms recur. It is worth mentioning that patient was tested for COVID-19 and found to be negative, imaging was negative for pulmonary emboli, both were done due to noted acute respiratory failure requiring ventilator support. Per discussion with today, there is adequate support to continue to provide appropriate care to the patient at home and she has adequate medications at home as well. Patient did have some degree of urinary retention requiring Ryder catheter placement. This has been discontinued prior to discharge and she has been able to void independently without difficulty. Physical Exam Const: COMMON NORMALS: no acute distress, patient oriented x3 and alert GENERAL APPEARANCE: cooperative and comfortable NUTRITIONAL APPEARANCE: overweight ORIENTATION/CONSCIOUSNESS: Yes awake HENMT: COMMON NORMALS: normocephalic, atraumatic, hearing grossly normal bilaterally and moist oral mucous membranes HEAD & SCALP: normocephalic and atraumatic Eye: COMMON NORMALS: Equal, round and reactive pupils present, EOMs intact bi laterally and conjunctivae normal CONJUNCTIVA: Yes conjunctivae normal PUPIL: Yes Equal, round and reactive pupils present Neck/C-Spine: COMMON NORMALS: full ROM GENERAL: Yes normal visual insp ection and Yes trachea midline Resp: COMMON NORMALS: normal respiratory effort, No retractions, No use of accessory muscles and clear to auscultation bilaterally EFFORT & INSPECTION: Yes able to speak in complete sentences, Yes symmetric chest movement and No tachypneic AUSCULTATION: clear to auscultation bilaterally OTHER: -on RA Cardio: COMMON NORMALS: regular rate, regular rhythm, S1 normal heart sound present, S2 normal heart sound present and No murmurs present (Cardio) RATE: regular rate RHYTHM: regular rhythm HEART SOUNDS: S1 normal heart sound present and S2 normal heart sound present GI: COMMON NORMALS: Normal to inspection, nondistended, normoactive bowel sounds present, Soft to palpation and non-tender INSPECTION: Yes central obesity PALPATION: Yes Soft to palpation Extremity: COMMON NORMALS: normal to inspection, full ROM and no clubbing, cyanosis or edema; negative for no pedal edema Neuro: COMMON NORMALS: patient oriented x3, moves all extremities, no focal motor deficits and no sensory deficits noted SENSORIUM/ORIENTATION: Yes alert OTHER: -mild bilateral hand tremors Psych: COMMON NORMALS: mental status grossly normal, Normal thought process present, cooperative, normal affect and speech normal SPEECH: Yes normal speech THOUGHT PROCESS: Normal thought process present Skin: COMMON NORMALS: no rashes or lesions noted, no jaundice, no petechiae and no mottling GENERAL SKIN EXAM: no rashes or lesions noted Urinary Catheter Management^: Ryder: Cath Placed During This Visit: yes, but has since been removed by the nurse Reason for Continuing Indwelling Catheter: Accurate Measurement of Urinary Output in Critically Ill Patients Urinary Catheter Date of Insertion: 04/05/20 Urinary Catheter Time of Insertion: 22:30 Date Urinary Catheter Removed: 04/03/20 Time Urinary Catheter Discontinued: 16:00 Discharge Data Data Completed and Pending: Completed Studies During Hospitalization Category Date Time Status CT angio chest PE protcl [id number] Stat Cat Scan 03/27/20 14:[address] head wo con* 7 0450 Urgent Cat Scan 03/27/20 12:10 Completed XR chest 1V valeriano ble [id number] Routine Exams 03/27/20 21:28 Completed XR chest 1V valeriano ble [id number] Routine Exams 03/29/20 05:10 Completed XR chest 1V valeriano ble [id number] Routine Exams 04/03/20 05:45 Completed XR chest 1V valeriano ble [id number] Stat Exams 03/30/20 19:36 Completed XR chest 1V valeriano ble [id number] Stat Exams 04/01/20 08:17 Completed XR chest 1V valeriano ble [id number] Urgent Exams 03/27/20 12:10 Completed Vitals: Last Vital Signs Temp 98.9 F 04/07/20 11:46 Pulse 99 04/07/20 11:46 Resp 18 04/07/20 11:46 BP 105/70 04/07/20 11:46 Pulse Ox 93 04/07/20 11:46 Discharge Plan Discharge Patient Disposition: Home Health Service Condition: Stable Prescriptions: Continued alprazolam 1 mg tablet 1 mg PO BID PRN (Reason: Anxiety) RF: 0 nifedipine 30 mg tablet extended release 30 mg PO DAILY RF: 0 tramadol 50 mg tablet 50 mg PO BID PRN (Reason: Pain) RF: 0 gemfibrozil 600 mg tablet 600 mg PO BID RF: 0 ibuprofen 200 mg Tablet 600 - 800 mg PO PRN RF: 0 omeprazole 20 mg capsule,delayed release(DR/EC) 20 mg PO DAILY PRN (Reason: Acid Reflux) RF: 0 ProAir HFA 90 mcg/actuation HFA aerosol inhaler 2 puff INHALATION Q4H PRN (Reason: Shortness Of Breath) RF: 0 fluticasone propionate 50 mcg/actuation spray,suspension 2 spray INTRANASAL BID RF: 0 gabapentin 300 mg Capsule 300 mg PO TID RF: 0 Vistaril 25 mg Capsule 25 mg PO TID PRN (Reason: Anxiety) RF: 0 Discharge Orders: Discharge Order (Routine); Ordered 04/07/20 Ordered By: Hodan Espinoza Referrals: [facility]IORAL [facility]ALTH PROVIDERS, [Staff Physician] - 1 week Kenya Jasmine MD [Staff Physician] - 4-7 days Discharge Diet: Advance as tolerated, Low Salt and Low Cholesterol Discharge Activity: Increase activity as tolerated and As per PT/OT instructions Discharge Attestations Time Spent in Discharge Care*: greater than 30 min Specific Discharge Activities: educating patient, educating and/or supporting family/caregiver (, Roger Kern), discussing with child welfare caseworker/social workers/dc planners, documenting/other paperwork and evaluating patient/reviewing data Status at Discharge: Cognitive status at discharge: mildly impaired cognition , Behavioral status at discharge: cooperative , Overall status at discharge: patient is progressing back to baseline Quality Metrics Clinical Quality Measures During this hospital stay, did patient experience: None Coding Level of Care Code Acute Radio Host for Gerry Fweliezer Diagnoses Acute encephalopathy G93.40 Transaminitis R74.01 Hypertension I10 Hypertension type: essential hypertension Pneumonia J18.9 Pneumonia type: due to unspecified organism Laterality: right Lung location: lower lobe of lung
[2020-04-07] MEDS: fixodent 39 gm Tube 1 APPLIC DENTAL (13:03)
[2020-04-07] MEDS: fluconazole 100 mg Tablet 150 MG PO (13:18)
--- NOTE | 2020-04-07 13:28 | PC.RESP ---
PULMONARY REHAB INFORMATION SENT TO PATIENT.
--- NOTE | 2020-04-07 15:19 | PC.NURSE ---
Yvette from [facility] called and stated they will mail paperwork to patient in order to get her established with a provider.
--- NOTE | 2020-04-07 15:53 | PC.NURSE ---
1510 patient given discharge instructions and verbalized understanding of instructions. patient taken to private vehicle via wheelchair.
== END 2020-04-07 15:59 | disposition home or self-care (01) | DRG 870 ==
LOC: ER 12:26 → MEDSURG 15:02 → CSU 20:58 → ICU 21:04 → MEDSURG 04-06 17:50
PROVIDERS: Hospitalist; Admitting Provider Internal Medicine; Emergency Provider Emergency Medicine; Visit Provider Family Medicine
DX: A41.9 Sepsis, unspecified organism (principal); J18.9 Pneumonia, unspecified organism; J96.01 Acute respiratory failure with hypoxia; J96.02 Acute respiratory failure with hypercapnia; J44.0 Chronic obstructive pulmonary disease with (acute) lower respiratory infection; J44.1 Chronic obstructive pulmonary disease with (acute) exacerbation; E87.4 Mixed disorder of acid-base balance; G93.40 Encephalopathy, unspecified; I10 Essential (primary) hypertension; I95.9 Hypotension, unspecified; B95.1 Streptococcus, group B, as the cause of diseases classified elsewhere; E87.6 Hypokalemia; K21.9 Gastro-esophageal reflux disease without esophagitis; R33.9 Retention of urine, unspecified; R25.1 Tremor, unspecified; E66.01 Morbid (severe) obesity due to excess calories; Z68.32 Body mass index [BMI] 32.0-32.9, adult; Z79.51 Long term (current) use of inhaled steroids; R74.01 Elevation of levels of liver transaminase levels
CPT/HCPCS: 12345; 36415; 36416; 36600; 51702; 70450; 71045; 71275; 80051; 80053; 80202; 82140; 82330; 82803; 82805; 82962; 83605; 83735; 83880; 84100; 84145; 84443; 85025; 85384; 85610; 86140; 87040; 87070; 87086; 87426; 87635; 93005; 94002; 94003; 94640; 94660; 94799; 96372; 96375; 97110; 97116; 97161; 97530; 99283; A4570; J0330; J0360; J0456; J0696; J0743; J1170; J1200; J1630; J1650; J1940; J2060; J2250; J2270; J2704; J2930; J3010; J3370; J3480; J3486; J3490; J3535; J7030; J7040; J7050; Q9967

== ENCOUNTER 2021-02-19 13:43 | Emergency (ER) | payer MEDICAID, SELFPAY ==
[2021-02-19 13:49] VITALS: BP 126/78; PULSE 110; RESP 20; TEMP 36.6; O2SAT 91
[2021-02-19 14:20] VITALS: BP 123/66; PULSE 95; O2SAT 93
[2021-02-19 14:32] LABS: Basophils % 0.3 %; Eosinophils % 0.2 %; Hematocrit 37.4 % (37.0-47.0); Lymphocytes # 0.6 10^3/uL (0.8-4.8); Mean Corpuscular HGB Conc 32.1 g/dL (30.0-36.0); Mean Corpuscular Hemoglobin 27.1 pg (28.0-34.0); Mean Corpuscular Volume 84.4 fl (81-99); Monocytes # 0.4 10^3/uL (0.2-0.9); Monocytes % 3.6 %; Neutrophils # 10.93 10^3/uL (1.8-7.7); Neutrophils % 90.3 %; Nucleated Red Blood Cells % 0 %; Platelet Count 391 10^3/cmm (130-400); Red Blood Count 4.43 10^6/uL (4.1-5.3); Red Cell Distribution Width 14.9 % (12.1-15.1); White Blood Count 12.1 10^3/uL (4.0-10.0)
[2021-02-19 14:56] LABS: Alanine Aminotransferase 39 U/L (0-33); Albumin Level 3.4 g/dL (3.5-5.2); Alkaline Phosphatase 329 IU/L (35-105); Anion Gap 21.1 (5-19); Aspartate Amino Transferase 160 U/L (0-32); Blood Urea Nitrogen 19 mg/dL (6-20); Carbon Dioxide 21 mmol/L (22-29); Chloride 96 mmol/L (98-107); Globulin 3.2 g/dL (1.3-4.6); Glomerular Filtration Rate 73.4 mL/min (90-130); Glucose 167 mg/dL (65-115); Lipase 14 U/L (13-60); Osmolality Calculated 286 mOsm/kg (285-295); Potassium 3.1 mmol/L (3.5-5.1); Sodium 135 mmol/L (136-145); Total Bilirubin 4.1 mg/dL (0.15-1.2); Total Protein 6.6 g/dL (6.6-8.7); Troponin T (5th) Once 6 ng/L (0-10)
--- NOTE | 2021-02-19 15:47 | US_ITS ---
WS: [id number] ULTRASOUND ABDOMEN LIMITED CLINICAL INFORMATION: cholecystitis? COMPARISON: None. FINDINGS: Liver Size: Mild hepatomegaly Craniocaudal length: 17.1 cm. Echogenicity: Coarse Surface nodularity: None. Mass (size and location): None. Bile ducts Intrahepatic ducts: Normal. Common bile duct diameter: 0.8 cm. Gallbladder Hydropic gallbladder echogenic masslike sludge or soft tissue mass.. Ringdown artifact suspicious for adenomyomatosis. Gallbladder carcinoma not entirely excluded. Gallbladder measures 10 x 12 cm Gallbladder wall thickenin.9 mm Pericholecystic fluid: None. Sonographic Garibay sign: Absent. Pancreas Normal as visualized Right kidney: Normal. Hydronephrosis: None. Size: 10.8 cm x 4.3 cm x 4.6 cm. Abdominal aorta and IVC Visualized portions are normal. Ascites: None. US/US gall bladder [id number] IMPRESSION: 1. Mild hepatomegaly with diffuse fatty infiltration. 2. Hydropic gallbladder with echogenic masslike sludge or soft tissue mass. Ri ngdown artifact suspicious for adenomyomatosis. Gallbladder carcinoma not entir aman excluded.Findings can be further evaluated MRCP. No significant pericholecy stic fluid. 3. No hydronephrosis right kidney.
--- NOTE | 2021-02-19 16:02 | ED_ITS ---
HPI - General Adult General: Chief complaint: Abdominal Pain Stated complaint: Abdominal pain, weak, dizzy, no appetite Time Seen by Provider: 02/19/21 14:23 History of Present Illness: HPI narrative: 60-year-old female with history of COPD, apppendectomy, 2 prior C sections who presents the emergency room with right upper quadrant abdominal pain x3 days. Patient was at home when she developed right upper quadrant dull pain has since then progressively worsened. Now patient reports constant pain reports nausea denies vomiting, fever/chills. Patient went to see her primary yesterday and upon exam was told to go to the emergency room for concerns of cholecystitis. Patient denies any complaints, diarrhea, melena or hematochezia. Patient denies any associate chest pain shortness breath, cough runny nose or sore throat. Onset:3 days ago Duration:3 days Location:home Severity: moderate Review of Systems Narrative: Constitutional: No fever, no chills. HEENT: No vision changes CV: No chest pain, no palpitations PULM: no cough, no dyspnea. GI: +RUQabdominal pain, no N/V/D. : No dysuria MSKEL: No muscle pain SKIN: No new rashes, no lesions. NEURO: No headache, no focal weakness. HEME: No visible bruises PSYCH: Normal mood PFSH ED PFSH: Medical History COPD (chronic obstructive pulmonary disease) Hypertension -continue home antihypertensives Obesity Smoker Female Reproductive History: Date of last menstrual period: 08/06/20 Physical Exam Narrative: EXAM NARRATIVE: Head: Atraumatic Eyes: PERRL, conjunctiva without injection ENT: Mucous membrane moist NECK: Supple, ROM intact LUNGS: LCTAB, no crackles/rhonchi CV: RRR ABDOMEN: Soft, +RUQ focal TTP. NO guarding rebound, guarding, rigidity. No CVA tenderness to percussion. +Garibay/Neg McBurney's point tenderness, no suprabupic tenderness to palpation. EXTREMITY: Normal ROM SKIN: No rash or erythema NEURO: Awake and alert, no focal motor deficits PSYCH: Normal mood and affect Course Vital Signs: Vital signs: Vital Signs Temperature 97.9 F 02/19/21 13:49 Pulse Rate 84 02/19/21 19:29 Respiratory Rate 20 H 02/19/21 19:29 Blood Pressure 134/94 02/19/21 19:29 Pulse Oximetry 95 02/19/21 19:29 MDM - General Adult MDM Narrative: Medical decision making narrative: Patient is a 60-year-old female who presents emergency room with 3 days of right upper quadrant abdominal pain. On exam, patient is afebrile w/ focal RUQ tenderness palpation, +garibay's sign. Hemodynamically stable. WBC of 12.1 today. Right upper quadrant ultrasound showed gallbladder concerning for possible cancer versus adenomyomatosis. Patient has T bili 4.1, mild AST/ALT elevation. CT abd pelvis showed acute cholecystitis with abscess and CBD stone. Case discussed with Dr. Seo who informs that given the complicated nature of the hepatobiliary surgery, it is best patient transferred further management. Given zosyn in the ED. Case was discussed with Dr. Anderson from [facility] who agrees with the transfer for further management. Disposition: Transfer Lab Data: Labs: Lab Results 02/19/21 02/19/21 02/19/21 14:15 14:15 14:15 WBC 12.1 10^3/uL H 10 ^3/uL (4.0-10.0) RBC 4.43 10^6/uL 10^6 /uL (4.1-5.3) Hgb 12.0 g/dL g/dL (11.5-15.3) Hct 37.4 % % (37.0-47.0) MCV 84.4 fl fl (81-99) MCH 27.1 pg L pg (28.0-34.0) MCHC 32.1 g/dL g/dL (30.0-36.0) RDW 14.9 % % (12.1-15.1) Plt Count 391 10^3/cmm 10^3 /cmm (130-400) MPV 10.0 fL fL (7.4-10.4) Neut % (Auto) 90.3 % % Lymph % (Auto) 5.0 % % [place] % (Auto) 3.6 % % Eos % (Auto) 0.2 % % Baso % (Auto) 0.3 % % Neut # (Auto) 10.93 10^3/uL H 1 0^3/uL (1.8-7.7) Lymph # (Auto) 0.6 10^3/uL L 10^ 3/uL (0.8-4.8) [place] # (Auto) 0.4 10^3/uL 10^3/ uL (0.2-0.9) Eos # (Auto) 0.0 10^3/uL 10^3/ uL (0.0-0.8) Baso # (Auto) 0.0 10^3/uL 10^3/ uL (0.0-0.1) Nucleated RBC % (a uto) 0 % % Nucleated RBCs # 0.0 /100WBC /100W BC PT INR APTT Sodium 135 mmol/L L mmol /L (136-145) Potassium 3.1 mmol/L L mmol /L (3.5-5.1) Chloride 96 mmol/L L mmol/ L (98-107) Carbon Dioxide 21 mmol/L L mmol/ L (22-29) Anion Gap 21.1 H (5-19) BUN 19 mg/dL mg/dL (6-20) Creatinine 0.8 mg/dL mg/dL (0.5-0.9) GFR Calculation 73.4 mL/min L mL/ min (90-130) Glucose 167 mg/dL H mg/dL (65-115) Calculated Osmolal ity 286 mOsm/kg mOsm/ kg (285-295) Lactate Calcium 9.0 mg/dL mg/dL (8.5-10.5) Total Bilirubin 4.1 mg/dL H mg/dL (0.15-1.2) AST 160 U/L H U/L (0-32) ALT 39 U/L H U/L (0-33) Alkaline Phosphata se 329 IU/L H IU/L (35-105) Troponin T Gen 5 n g/L 6 ng/L ng/L (0-10) Total Protein 6.6 g/dL g/dL (6.6-8.7) Albumin 3.4 g/dL L g/dL (3.5-5.2) Globulin 3.2 g/dL g/dL (1.3-4.6) Lipase 14 U/L U/L (13-60) 02/19/21 02/19/21 14:15 14:15 WBC RBC Hgb Hct MCV MCH MCHC RDW Plt Count MPV Neut % (Auto) Lymph % (Auto) Rad[place] % (Auto) Eos % (Auto) Baso % (Auto) Neut # (Auto) Lymph # (Auto) [place] # (Auto) Eos # (Auto) Baso # (Auto) Nucleated RBC % (a uto) Nucleated RBCs # PT 16.00 SECONDS H S ECONDS (12.1-14.9) INR 1.24 H (0.8-1.2) APTT 40.9 SECONDS H SE CONDS (23.9-36.7) Sodium Potassium Chloride Carbon Dioxide Anion Gap BUN Creatinine GFR Calculation Glucose Calculated Osmolal ity Lactate 1.7 mmol/L mmol/L (0.5-2.2) Calcium Total Bilirubin AST ALT Alkaline Phosphata se Troponin T Gen 5 n g/L Total Protein Albumin Globulin Lipase Imaging Data^: Other Imaging: Radiologist's impression: [facility] [id number] Scan ReportSigned with Addenda Patient: Selene Kern #: [id number]: 1960cct#:[id number]/Sex: 60 / FADM Date: 02/19/21Loc: ERRoom/Bed:Attending Dr: Ordering Provider/Ordering MD: Shefali Sherwood MD Date of Service: 02/19/21 Procedure(s): CT abdomen pelvis wo con [id number] Accession Number(s): [id number] Report Number: [id number]/CT abdomen pelvis con [id number] THIS REPORT CONTAINS FINDINGS THAT MAY BE CRITICAL TO PATIENT CARE. The findings were verbally communicated via telephone conference with SHEFALI SHERWOOD at 6:09 PM CDT on 02/19/2021. The findings were acknowledged and understood. Radiation Dose CTDIVOL = (mGy): DLP = 1657.19 (mGy-cm) Addendum Dictated By: Edward Martin MDAddendum Signed By: Edward Martin MDSigned Date/Time:02/19/21 1812Addendum Cosigned By: PROCEDURE INFORMATION: Exam: CT Abdomen And Pelvis Without Contrast Exam date and time: 02/19/2021 5:01 PM Age: 60 years old Clinical indication: Abdominal pain; Localized; Right upper quadrant (ruq); Prior surgery; Surgery date: 6+ months; Surgery type: Appy, c-sect; Patient HX: C/O ruq abd pain w nausea x 3 days; Additional info: Evaluate for acute infection TECHNIQUE: Imaging protocol: Computed tomography of the abdomen and pelvis without contrast. Radiation optimization: All CT scans at this facility use at least one of these dose optimization techniques: automated exposure control; mA and/or kV adjustment per patient size (includes targeted exams where dose is matched to clinical indication); or iterative reconstruction. COMPARISON: US gall bladder [id number] 02/19/2021 4:04 PM RADIATION DOSE METRICS: Total DLP (mGy-cm): 1657.19 FINDINGS: Lungs: Lung bases are clear. Liver: There is an ill-defined mass or complex cyst in the anterior right lobe of the liver adjacent to the gallbladder fossa measuring 5.9 x 4.0 cm in axial dimension. Gallbladder and bile ducts: The gallbladder is massively distended measuring up to 10.5 cm diameter. The lumen contains sludge and stones. No stones are seen in the gallbladder neck. There is diffuse pericholecystic edema. The common bile duct is mildly dilated measuring up to 8 mm diameter. There is an 8 mm diameter stone in the distal common bile duct at the level of the ampulla. Pancreas: The pancreas is unremarkable. Spleen: The spleen is unremarkable. Adrenal glands: The adrenal glands are unremarkable. Kidneys and ureters: The kidneys are unremarkable. No hydronephrosis or stones. No ureteral dilation. Stomach and bowel: The stomach is decompressed, preventing meaningful evaluation of wall thickness. The small bowel is nondilated. The colon is unremarkable. Appendix: The appendix is not visible. Intraperitoneal space: There is no free air or significant intraperitoneal free fluid. Vasculature: There is moderate aortic atherosclerotic disease. Lymph nodes: There is no lymphadenopathy in the retroperitoneum, mesentery, pelvis or inguinal regions. Urinary bladder: The urinary bladder is unremarkable. Reproductive: The uterus is unremarkable. There is no adnexal mass or large cyst. Bones/joints: There is mild degenerative disease in the lower lumbar spine. The pelvis and proximal femora are intact. Soft tissues: The abdominal wall is intact. CT/CT abdomen pelvis wo con [id number] IMPRESSION: 1. Acute cholecystitis. 2. Distal common bile duct obstruction. 3. Right lobe liver lesion adjacent to the gallbladder fossa. Possible solid mass or complex fluid collection (multilocular abscess is a possibility). CT or MRI without and with IV contrast could be used for differentiation. COMMENTS: Consistent with the [employer]'s Incidental Findings Committee white paper (J Am Sylvester Radiol 2018): Any incidental renal lesion less than 1 cm or classified as too small to characterize, or any incidental cystic renal lesion characterized as simple-appearing, is likely benign. No follow-up imaging is recommended for these lesions per consensus recommendations based on imaging criteria. Radiation Dose CTDIVOL = (mGy): DLP = 1657.19 (mGy-cm) Dictated By:Edward Martin MDSigned By:Edward Martin MDSigned Date/Time:02/19/21 1805DD/ 1701 [facility] [place] [address]P[place]wfe ReportSigned Patient: Selene Kern #: [id number]: 1960cct#:[id number]/Sex: 60 / FADM Date: 02/19/21Loc: ERRoom/Bed:Attending Dr: Ordering Provider/Ordering MD: Shefali Sherwood MD Date of Service: 02/19/21 Procedure(s): US gall bladder [id number] Accession Number(s): [id number] Report Number: [id number] WS: [id number] ULTRASOUND ABDOMEN LIMITED CLINICAL INFORMATION: cholecystitis? COMPARISON: None. FINDINGS: Liver Size: Mild hepatomegaly Craniocaudal length: 17.1 cm. Echogenicity: Coarse Surface nodularity: None. Mass (size and location): None. Bile ducts Intrahepatic ducts: Normal. Common bile duct diameter: 0.8 cm. Gallbladder Hydropic gallbladder echogenic masslike sludge or soft tissue mass.. Ringdown artifact suspicious for adenomyomatosis. Gallbladder carcinoma not entirely excluded. Gallbladder measures 10 x 12 cm Gallbladder wall thickenin.9 mm Pericholecystic fluid: None. Sonographic Garibay sign: Absent. Pancreas Normal as visualized Right kidney: Normal. Hydronephrosis: None. Size: 10.8 cm x 4.3 cm x 4.6 cm. Abdominal aorta and IVC Visualized portions are normal. Ascites: None. US/US gall bladder [id number] IMPRESSION: 1. Mild hepatomegaly with diffuse fatty infiltration. 2. Hydropic gallbladder with echogenic masslike sludge or soft tissue mass. Ringdown artifact suspicious for adenomyomatosis. Gallbladder carcinoma not entirely excluded.Findings can be further evaluated MRCP. No significant pericholecystic fluid. 3. No hydronephrosis right kidney. Dictated By:Med Fonseca MDSigned By:Med Fonseca MDSigned Date/Time:02/19/21 1637DD/ 20 Discharge Plan Discharge Patient Disposition: Transfer to ED Clinical Impression: Acute cholecystitis, Choledocholithiasis Condition: Stable Prescriptions: No Action alprazolam 1 mg tablet 1 mg PO BID PRN (Reason: Anxiety) RF: 0 nifedipine 30 mg tablet extended release 30 mg PO DAILY RF: 0 tramadol 50 mg tablet 50 mg PO BID PRN (Reason: Pain) RF: 0 gemfibrozil 600 mg tablet 600 mg PO BID RF: 0 ibuprofen 200 mg Tablet 600 - 800 mg PO PRN RF: 0 omeprazole 20 mg capsule,delayed release(DR/EC) 20 mg PO DAILY PRN (Reason: Acid Reflux) RF: 0 albuterol sulfate [ProAir HFA] 90 mcg/actuation HFA aerosol inhaler 2 puff INHALATION Q4H PRN (Reason: Shortness Of Breath) RF: 0 fluticasone propionate 50 mcg/actuation spray,suspension 2 spray INTRANASAL BID RF: 0 gabapentin 300 mg Capsule 600 mg PO TID RF: 0 hydroxyzine pamoate [Vistaril] 25 mg Capsule 25 mg PO TID PRN (Reason: Anxiety) RF: 0 Referrals: Kenya Jasmine MD [Primary Care Provider] - Coding Level of Care Code ED Manager Child for Gerry Jansen
--- NOTE | 2021-02-19 17:01 | CTR_ITS ---
PROCEDURE INFORMATION: Exam: CT Abdomen And Pelvis Without Contrast Exam date and time: 02/19/2021 5:01 PM Age: 60 years old Clinical indication: Abdominal pain; Localized; Right upper quadrant (ruq); Prior surgery; Surgery date: 6+ months; Surgery type: Appy, c-sect; Patient HX: C/O ruq abd pain w nausea x 3 days; Additional info: Evaluate for acute infection TECHNIQUE: Imaging protocol: Computed tomography of the abdomen and pelvis without contrast. Radiation optimization: All CT scans at this facility use at least one of these dose optimization techniques: automated exposure control; mA and/or kV adjustment per patient size (includes targeted exams where dose is matched to clinical indication); or iterative reconstruction. COMPARISON: US gall bladder [id number] 02/19/2021 4:04 PM RADIATION DOSE METRICS: Total DLP (mGy-cm): 1657.19 FINDINGS: Lungs: Lung bases are clear. Liver: There is an ill-defined mass or complex cyst in the anterior right lobe of the liver adjacent to the gallbladder fossa measuring 5.9 x 4.0 cm in axial dimension. Gallbladder and bile ducts: The gallbladder is massively distended measuring up to 10.5 cm diameter. The lumen contains sludge and stones. No stones are seen in the gallbladder neck. There is diffuse pericholecystic edema. The common bile duct is mildly dilated measuring up to 8 mm diameter. There is an 8 mm diameter stone in the distal common bile duct at the level of the ampulla. Pancreas: The pancreas is unremarkable. Spleen: The spleen is unremarkable. Adrenal glands: The adrenal glands are unremarkable. Kidneys and ureters: The kidneys are unremarkable. No hydronephrosis or stones. No ureteral dilation. Stomach and bowel: The stomach is decompressed, preventing meaningful evaluation of wall thickness. The small bowel is nondilated. The colon is unremarkable. Appendix: The appendix is not visible. Intraperitoneal space: There is no free air or significant intraperitoneal free fluid. Vasculature: There is moderate aortic atherosclerotic disease. Lymph nodes: There is no lymphadenopathy in the retroperitoneum, mesentery, pelvis or inguinal regions. Urinary bladder: The urinary bladder is unremarkable. Reproductive: The uterus is unremarkable. There is no adnexal mass or large cyst. Bones/joints: There is mild degenerative disease in the lower lumbar spine. The pelvis and proximal femora are intact. Soft tissues: The abdominal wall is intact. CT/CT abdomen pelvis wo con [id number] IMPRESSION: 1. Acute cholecystitis. 2. Distal common bile duct obstruction. 3. Right lobe liver lesion adjacent to the gallbladder fossa. Possible solid mass or complex fluid collection (multilocular abscess is a possibility). CT or MRI without and with IV contrast could be used for differentiation. COMMENTS: Consistent with the [employer]'s Incidental Findings Committee white paper (J Am Sylvester Radiol 2018): Any incidental renal lesion less than 1 cm or classified as too small to characterize, or any incidental cystic renal lesion characterized as simple-appearing, is likely benign. No follow-up imaging is recommended for these lesions per consensus recommendations based on imaging criteria. Radiation Dose CTDIVOL = (mGy): DLP = 1657.19 (mGy-cm)
[2021-02-19 17:24] LABS: INR 1.24 (0.8-1.2)
[2021-02-19 17:25] LABS: Partial Thromboplastin Time 40.9 SECONDS (23.9-36.7)
[2021-02-19 17:29] LABS: Lactate (Lactic Acid level) 1.7 mmol/L (0.5-2.2)
--- NOTE | 2021-02-19 18:04 | PM.HP ---
Providers/Chief Complaint Primary Care Provider: Kenya Jasmine MD Chief Complaint: Abdominal pain, weak, dizzy, no appetite History of Present Illness Selene Kern is a 60 year old female Medications/Allergies Home Medications Medication Instructions Recorded Confirmed Last Taken Type albuterol sulfate [ProAir HFA] 2 puff INHALATION Q4H PRN 03/27/20 02/19/21 Unknown History alprazolam 1 mg PO BID PRN 03/27/20 02/19/21 03/27/20 History fluticasone propionate 2 spray INTRANASAL BID 03/27/20 02/19/21 Unknown History gemfibrozil 600 mg PO BID 03/27/20 02/19/21 02/19/21 History ibuprofen 600 - 800 mg PO PRN 03/27/20 02/19/21 Unknown History nifedipine 30 mg PO DAILY 03/27/20 02/19/21 02/19/21 History omeprazole 20 mg PO DAILY PRN 03/27/20 02/19/21 02/19/21 History tramadol 50 mg PO BID PRN 03/27/20 02/19/21 03/27/20 History gabapentin 600 mg PO TID 04/03/20 02/19/21 02/19/21 History hydroxyzine pamoate [Vistaril] 25 mg PO TID PRN 04/03/20 02/19/21 Unknown History Allergies Allergy/AdvReac Type Severity Reaction Status Date / Time cephalexin [From Keflex] Allergy Unknown Verified 03/31/20 09:22 sulfamethoxazole Allergy ALGY-Hives Verified 02/19/21 13:53 [From Bactrim] trimethoprim [From Bactrim] Allergy ALGY-Hives Verified 02/19/21 13:53 PFSH Acute PFSH: Medical History COPD (chronic obstructive pulmonary disease) Hypertension -continue home antihypertensives Obesity Smoker Female Reproductive History: Date of last menstrual period: 08/06/20 Vitals/I&O/Wt Last Vital Signs Temp 97.9 F 02/19/21 13:49 Pulse 95 02/19/21 14:20 Resp 20 H 02/19/21 13:49 BP 123/66 02/19/21 14:20 Pulse Ox 93 02/19/21 14:20 Weight last 48 hrs Weight 81.647 kg Data : 02/19/21 14:15 02/19/21 14:15 A&P Assessment and plan (1) Cholecystitis: Status: Acute Coding Level of Care Code Acute Property Assessment Monitor for [facility] Diagnoses Cholecystitis K81.9
[2021-02-19] MEDS: piperacillin-tazobactam 4.5 GM in sodium chloride 0.9% (plus) 50 ML IV (18:09)
[2021-02-19] MEDS: morphine 4 mg/mL SDV 1 mL IVP (18:11)
[2021-02-19] MEDS: sodium chloride 0.9% 500 ML IV (18:12)
[2021-02-19 18:22] VITALS: BP 125/72; PULSE 110; O2SAT 91
[2021-02-19] MEDS: sodium chloride 0.9% 1,000 ML 999 ML IV (19:14)
[2021-02-19 19:29] VITALS: BP 134/94; PULSE 84; RESP 20; O2SAT 95
[2021-02-19 22:46] VITALS: BP 100/80; PULSE 104; RESP 24; O2SAT 93
--- NOTE | 2021-02-19 23:44 | PC.NURSE ---
[facility] accepts flight. 25 min out.
[2021-02-20] VITALS: BP 119/92; PULSE 99; RESP 28; O2SAT 99
[2021-02-20 00:31] VITALS: BP 119/92; PULSE 93; RESP 28; O2SAT 99
== END 2021-02-20 00:20 ==
PROVIDERS: Emergency Provider Emergency Medicine; PCP Family Medicine
DX: K80.42 Calculus of bile duct with acute cholecystitis without obstruction (principal); J44.9 Chronic obstructive pulmonary disease, unspecified; I10 Essential (primary) hypertension
CPT/HCPCS: 74176; 76705; 80053; 83605; 83690; 84484; 85025; 85610; 85730; 87040; 96361; 96365; 96375; 99284; J2270; J2543; J7030; J7040

== ENCOUNTER 2021-03-08 22:09 | Emergency (ER) | payer MEDICAID, SELFPAY ==
[2021-03-08 22:16] VITALS: BP 173/97; PULSE 70; RESP 18; TEMP 36.6; O2SAT 95; BMI 34.9
--- NOTE | 2021-03-08 22:31 | W.ED.GENADLT ---
HPI - General Adult General: Chief complaint: General Medical Stated complaint: Cathder in Liver\its stuck Time Seen by Provider: 03/08/21 22:31 History of Present Illness: HPI narrative: 60-year-old female comes in today with complaints of decreased drainage from her biliary catheter. On exam patient appears well. Patient appears no acute distress. Patient reports some mild right upper quadrant abdominal pain. Patient had a biliary catheter placed earlier this month due to duct obstruction with a stone. Patient is to have her catheter removed and gallbladder removed in 1 week. Patient reports noticing decreased drainage over the last 4 days. Patient was concerned due to increased redness surrounding the site of the catheter with some purulent drainage. Patient denies any fever or significant discomfort. Review of Systems General: Reports: 10 or more systems reviewed and unremarkable except in HPI and below GI: Reports: other (Poor drainage from biliary catheter) PFSH ED PFSH: Medical History COPD (chronic obstructive pulmonary disease) Hypertension -continue home antihypertensives Obesity Smoker Female Reproductive History: Date of last menstrual period: 08/06/20 Physical Exam Const: COMMON NORMALS: no acute distress and patient oriented x3 GENERAL APPEARANCE: cooperative HENMT: COMMON NORMALS: normocephalic and Normal external nose present HEAD & SCALP: normal to inspection and normocephalic NOSE: Normal external nose present MOUTH: Normal oral and palatal mucosa present Eye: GENERAL EYE: appearance normal, both eyes and all related structures Neck/C-Spine: COMMON NORMALS: full ROM Chest: COMMONS NORMALS: normal inspection of the chest Resp: COMMON NORMALS: normal respiratory effort EFFORT & INSPECTION: Yes able to speak in complete sentences Cardio: COMMON NORMALS: regular rate and regular rhythm RATE: regular rate RHYTHM: regular rhythm GI: OTHER: No significant tenderness on palpation of abdomen. Patient does have an area of redness and excoriation due to adhesive from tape. At the catheter placement site there was some light purulent drainage from the wound with no abscess formation noted. : COMMON NORMALS: Yes no CVA tenderness BLADDER/KIDNEY EXAM: Yes no CVA tenderness Back/Pelvis: COMMON NORMALS: no CVA tenderness and thoracic and lumbar spine normal to inspection Extremity: COMMON NORMALS: normal to inspection Neuro: COMMON NORMALS: patient oriented x3 and moves all extremities Psych: COMMON NORMALS: mental status grossly normal and cooperative Skin: COMMON NORMALS: no rashes or lesions noted GENERAL SKIN EXAM: no rashes or lesions noted Course Vital Signs: Vital signs: Vital Signs Temperature 97.8 F 03/08/21 22:53 Pulse Rate 75 03/08/21 22:53 Respiratory Rate 18 03/08/21 22:53 Blood Pressure 140/81 03/08/21 22:53 Pulse Oximetry 95 03/08/21 22:53 MDM - General Adult MDM Narrative: Medical decision making narrative: Patient came in today for concerns of drainage from her wound biliary catheter site. Patient was also concerned because her catheter was not draining much bile anymore. On exam abdomen is soft with some mild tenderness on palpation. Patient does have some redness surrounding the insertion site of the biliary catheter that is approximately 6 cm but it is very Lambert and suggestive of adhesive irritation. Patient does have some purulent drainage at the insertion site. Differential diagnosis includes but not limited to obstructed biliary catheter, displacement of the biliary catheter, cellulitis, wound infection. Laboratory values were unremarkable. Alkaline phosphatase was elevated but her bilirubin and AST/ALTs were normal. We will cover patient for some mild cellulitis of abdominal wall/wound infection with Cipro 500 twice a day for 5 days. Patient should follow-up with her surgeon tomorrow regarding the poorly draining biliary catheter. I reviewed this with Dr. Castillo who agreed to plan. Lab Data: Labs: Lab Results 03/08/21 03/08/21 20:52 20:52 WBC 7.8 10^3/uL 10^3/ uL (4.0-10.0) RBC 4.25 10^6/uL 10^6 /uL (4.1-5.3) Hgb 11.5 g/dL g/dL (11.5-15.3) Hct 37.3 % % (37.0-47.0) MCV 87.8 fl fl (81-99) MCH 27.1 pg L pg (28.0-34.0) MCHC 30.8 g/dL g/dL (30.0-36.0) RDW 17.5 % H % (12.1-15.1) Plt Count 493 10^3/cmm H 10 ^3/cmm (130-400) MPV 9.0 fL fL (7.4-10.4) Neut % (Auto) 44.8 % % Lymph % (Auto) 39.7 % % [place] % (Auto) 7.7 % % Eos % (Auto) 6.0 % % Baso % (Auto) 1.4 % % Neut # (Auto) 3.52 10^3/uL 10^3 /uL (1.8-7.7) Lymph # (Auto) 3.1 10^3/uL 10^3/ uL (0.8-4.8) [place] # (Auto) 0.6 10^3/uL 10^3/ uL (0.2-0.9) Eos # (Auto) 0.5 10^3/uL 10^3/ uL (0.0-0.8) Baso # (Auto) 0.1 10^3/uL 10^3/ uL (0.0-0.1) Nucleated RBC % (a uto) 0 % % Nucleated RBCs # 0.0 /100WBC /100W BC Sodium 139 mmol/L mmol/L (136-145) Potassium 3.8 mmol/L mmol/L (3.5-5.1) Chloride 104 mmol/L mmol/L (98-107) Carbon Dioxide 22 mmol/L mmol/L (22-29) Anion Gap 16.8 (5-19) BUN 11 mg/dL mg/dL (6-20) Creatinine 0.6 mg/dL mg/dL (0.5-0.9) GFR Calculation 102.3 mL/min mL/m in (90-130) Glucose 103 mg/dL mg/dL (65-115) Calculated Osmolal ity 288 mOsm/kg mOsm/ kg (285-295) Calcium 9.7 mg/dL mg/dL (8.5-10.5) Total Bilirubin 0.3 mg/dL mg/dL (0.15-1.2) AST 14 U/L U/L (0-32) ALT < 5 U/L U/L (0-33) Alkaline Phosphata se 163 IU/L H IU/L (35-105) Total Protein 7.7 g/dL g/dL (6.6-8.7) Albumin 4.1 g/dL g/dL (3.5-5.2) Globulin 3.6 g/dL g/dL (1.3-4.6) Discharge Plan Discharge Patient Disposition: Home Clinical Impression: Abdominal wall cellulitis Cholelithiases Qualifiers: Cholelithiasis location: other site Biliary obstruction: without biliary obstruction Qualified Code(s): K80.80 - Other cholelithiasis without obstruction Condition: Stable Prescriptions: New ciprofloxacin HCl 500 mg tablet 500 mg PO BID Qty: 10 RF: 0 No Action alprazolam 1 mg tablet 1 mg PO BID PRN (Reason: Anxiety) RF: 0 nifedipine 30 mg tablet extended release 30 mg PO DAILY RF: 0 tramadol 50 mg tablet 50 mg PO BID PRN (Reason: Pain) RF: 0 gemfibrozil 600 mg tablet 600 mg PO BID RF: 0 ibuprofen 200 mg Tablet 600 - 800 mg PO PRN RF: 0 omeprazole 20 mg capsule,delayed release(DR/EC) 20 mg PO DAILY PRN (Reason: Acid Reflux) RF: 0 albuterol sulfate [ProAir HFA] 90 mcg/actuation HFA aerosol inhaler 2 puff INHALATION Q4H PRN (Reason: Shortness Of Breath) RF: 0 fluticasone propionate 50 mcg/actuation spray,suspension 2 spray INTRANASAL BID RF: 0 gabapentin 300 mg Capsule 600 mg PO TID RF: 0 hydroxyzine pamoate [Vistaril] 25 mg Capsule 25 mg PO TID PRN (Reason: Anxiety) RF: 0 Discharge Orders: Discharge ED (Routine); Ordered 03/08/21 Ordered By: Cyrus Maldonado Referrals: Kenya Jasmine MD [Primary Care Provider] - Discharge Diet: Usual diet Discharge Activity: Increase activity as tolerated Patient Instructions: Cellulitis (ED), Opioid Safety Activity Restrictions/Additional Instructions: Take antibiotic as directed. Monitor site for worsening symptoms. Drink plenty of water with medication. Follow-up with surgeon for further instruction. Return to the ED for new concerns. Coding Level of Care Code ED Aircraft Refueler for Chg Fwd Exam Comprehensive
[2021-03-08 22:53] VITALS: BP 140/81; PULSE 75; RESP 18; TEMP 36.6; O2SAT 95
[2021-03-08 22:56] LABS: Basophils # 0.1 10^3/uL (0.0-0.1); Basophils % 1.4 %; Eosinophils # 0.5 10^3/uL (0.0-0.8); Hematocrit 37.3 % (37.0-47.0); Hemoglobin 11.5 g/dL (11.5-15.3); Lymphocytes # 3.1 10^3/uL (0.8-4.8); Lymphocytes % 39.7 %; Mean Corpuscular HGB Conc 30.8 g/dL (30.0-36.0); Mean Corpuscular Hemoglobin 27.1 pg (28.0-34.0); Mean Corpuscular Volume 87.8 fl (81-99); Monocytes # 0.6 10^3/uL (0.2-0.9); Monocytes % 7.7 %; Neutrophils # 3.52 10^3/uL (1.8-7.7); Neutrophils % 44.8 %; Nucleated Red Blood Cells % 0 %; Platelet Count 493 10^3/cmm (130-400); Red Blood Count 4.25 10^6/uL (4.1-5.3); Red Cell Distribution Width 17.5 % (12.1-15.1); White Blood Count 7.8 10^3/uL (4.0-10.0)
[2021-03-08 23:28] LABS: Alanine Aminotransferase < 5 U/L (0-33); Albumin Level 4.1 g/dL (3.5-5.2); Alkaline Phosphatase 163 IU/L (35-105); Anion Gap 16.8 (5-19); Aspartate Amino Transferase 14 U/L (0-32); Blood Urea Nitrogen 11 mg/dL (6-20); Calcium 9.7 mg/dL (8.5-10.5); Carbon Dioxide 22 mmol/L (22-29); Chloride 104 mmol/L (98-107); Globulin 3.6 g/dL (1.3-4.6); Glomerular Filtration Rate 102.3 mL/min (90-130); Glucose 103 mg/dL (65-115); Osmolality Calculated 288 mOsm/kg (285-295); Potassium 3.8 mmol/L (3.5-5.1); Sodium 139 mmol/L (136-145); Total Bilirubin 0.3 mg/dL (0.15-1.2); Total Protein 7.7 g/dL (6.6-8.7)
[2021-03-08 23:39] VITALS: BP 140/81; PULSE 75; RESP 18; TEMP 36.6; O2SAT 95
[2021-03-08] MEDS: ciprofloxacin 500 mg Tablet PO (23:41)
== END 2021-03-08 23:42 | disposition home or self-care (01) ==
PROVIDERS: Emergency Provider Nurse Practitioner Family; PCP Family Medicine
DX: K80.80 Other cholelithiasis without obstruction (principal); L03.311 Cellulitis of abdominal wall; J44.9 Chronic obstructive pulmonary disease, unspecified; I10 Essential (primary) hypertension; E66.9 Obesity, unspecified; Z68.35 Body mass index [BMI] 35.0-35.9, adult; F17.200 Nicotine dependence, unspecified, uncomplicated
CPT/HCPCS: 80053; 85025; 99283